=== PATIENT | female | born 1995 | race African-American/Black ===

== ENCOUNTER → 2023-07-03 | Emergency (ER) | payer OTHER ==
[~2023-07-03] VITALS: Ht 170.2 cm; Wt 43.2 kg
[~2023-07-03] MED LIST: ACETAMINOPHEN 325 MG TABLET PO PRN; INSLAN SQ; INSU100I3 SQ; IOHEXOL 350 MG/ML 100 ML VIAL ONE; MAGNESIUM HYDROXIDE SUSPENSION 30 ML UDCUP PO PRN; MORPHINE SULFATE 2 MG/ML SYRINGE IVP PRN; ONDANSETRON HCL 4 MG/2 ML VIAL IVP PRN; PANTOPRAZOLE SODIUM 40 MG/VIAL IVP SCH; POTASSIUM CHL 10 MEQ/WATER 50 ML IV PRN; POTASSIUM CHLORIDE 20 MEQ ER TABLET PO PRN; PREN1TAB22 PO; SODIUM CHLORIDE 0.9% 1,000 ML IV SCH; SODIUM CHLORIDE 0.9% 100 ML ONE
[2023-07-03 01:42] VITALS: TEMP 98
[2023-07-03 01:58] LABS: BASOPHILS % (AUTO) 0.9 % (0.0-2.0); EOSINOPHILS % (AUTO) 1.9 % (1.0-6.0); HEMATOCRIT 35.1 % (36-46); HEMOGLOBIN 11.6 g/dL (12.0-16.0); LYMPHOCYTES # (AUTO) 2.5 K/uL (1.0-4.8); LYMPHOCYTES % (AUTO) 30.3 % (22.0-44.0); MEAN CORPUSCULAR HGB CONC 33.1 G/dL (31.0-37.0); MEAN CORPUSCULAR VOLUME 88 fL (80-100); MONOCYTES # (AUTO) 0.6 K/uL (0.1-1.0); MONOCYTES % (AUTO) 7.3 % (2.0-9.0); NEUTROPHILS # (AUTO) 4.9 K/uL (1.8-7.7); NEUTROPHILS % (AUTO) 59.6 % (40.0-70.0); PLATELET COUNT (AUTO) 206 K/uL (150-450); RED BLOOD CELL COUNT(AUTO) 4.01 MIL/uL (4.00-5.20); RED CELL DISTRIBUTION WIDTH 14.5 % (11.5-14.5); WHITE BLOOD COUNT (AUTO) 8.2 K/uL (4.5-11.0)
[2023-07-03 02:14] LABS: ALANINE AMINOTRANSFERASE 77 U/L (12-78); ALBUMIN 3.3 g/dL (3.4-5.0); ALKALINE PHOSPHATASE 123 U/L (46-116); ANION GAP 8 mmol/L (8-16); ASPARTATE AMINOTRANSFERASE 75 U/L (15-37); BILIRUBIN,TOTAL 0.3 mg/dL (0.1-1.0); CALCIUM, TOTAL 8.4 mg/dL (8.8-10.5); CARBON DIOXIDE 25 mmol/L (22-29); CHLORIDE 105 mmol/L (98-107); CREATININE 0.93 mg/dL (0.60-1.30); GLOMERULAR FILTR. RATE CALC > 60 mL/min (>60); LIPASE 77 U/L (16-77); POTASSIUM 3.4 mmol/L (3.5-5.1); SODIUM SERUM 138 mmol/L (136-145); TOTAL PROTEIN, SERUM 6.7 g/dL (6.4-8.2); UREA NITROGEN, BLOOD 7 mg/dL (7-18)
[2023-07-03 02:16] LABS: ACETONE,BLOOD NEGATIVE (NEGATIVE); TROPONIN I-HIGH SENSITIVITY Less Than 4 ng/L (<51)
[2023-07-03 02:18] LABS: GLUCOSE,RANDOM 540 mg/dL (70-110)
[2023-07-03] MEDS: SODIUM CHLORIDE 0.9% 1,000 ML IV ONE ×2 (02:36→07:38)
[2023-07-03] MEDS: MORPHINE SULFATE 2 MG/ML SYRINGE IVP ONE ×2 (02:37→03:28)
[2023-07-03] MEDS: ONDANSETRON HCL 4 MG/2 ML VIAL IVP ONE (02:38)
[2023-07-03] MEDS: FAMOTIDINE 20 MG/2 ML VIAL IVP ONE (02:52)
[2023-07-03] MEDS: INSULIN REGULAR, HUMAN 100 UNITS/ML IVP ONE (03:00)
[2023-07-03] MEDS: POTASSIUM CHL 10 MEQ/WATER 50 ML IV SCH (03:21)
[2023-07-03 04:21] LABS: GLUCOMETER DEV NAME(LOC) ERT.5; GLUCOSE,POINT OF CARE 455 MG/DL (70-110)
[2023-07-03 04:21] LABS: GLUCOMETER DEV NAME(LOC) ERT.5; GLUCOSE,POINT OF CARE 156 MG/DL (70-110)
[2023-07-03 04:24] LABS: APPEARANCE,URINE CLEAR (CLEAR); BILIRUBIN,URINE NEGATIVE (NEGATIVE); COLOR,URINE COLORLESS (YELLOW); GLUCOSE, URINE (UA) >=1000 mg/dL (NEGATIVE); KETONES,URINE NEGATIVE (NEGATIVE); LEUKOCYTE ESTERASE ,URINE NEGATIVE (NEGATIVE); NITRATE,URINE NEGATIVE (NEGATIVE); OCCULT BLOOD,URINE NEGATIVE (NEGATIVE); PROTEIN,URINE NEGATIVE (NEGATIVE); UROBILINOGEN,URINE <=1.0 mg/dL (<=1.0)
[2023-07-03 04:34] LABS: BACTERIA,URINE None Seen /HPF (None Seen); RBC,URINE None Seen /HPF (0-2); WBC,URINE None Seen /HPF (0-5)
[2023-07-03 04:35] LABS: SQUAMOUS EPITHELIAL CELL,UR None Seen /LPF (None Seen)
[2023-07-03] MEDS: ACETAMINOPHEN 325 MG TABLET PO ONE (05:53)
[2023-07-03 06:30] LABS: GLUCOMETER DEV NAME(LOC) ERT.5; GLUCOSE,POINT OF CARE 88 MG/DL (70-110)
[2023-07-03 07:16] VITALS: BP 119/79; PULSE 88; RESP 20
[2023-07-03] MEDS: METHOCARBAMOL 500 MG TABLET PO ONE (08:10)
[2023-07-03 10:26] LABS: GLUCOMETER DEV NAME(LOC) ERT.5; GLUCOSE,POINT OF CARE 200 MG/DL (70-110)
[2023-07-03 12:10] LABS: ALCOHOL, URINE DRUG SCREEN NEGATIVE (NEGATIVE); AMPHET/METH SCREEN,URINE NEGATIVE (NEGATIVE); BARBITURATE SCREEN, URINE NEGATIVE (NEGATIVE); BENZODIAZEPINES SCREEN,URINE NEGATIVE (NEGATIVE); CANNABINOID SCREEN,URINE NEGATIVE (NEGATIVE); COCAINE SCREEN,URINE NEGATIVE (NEGATIVE); METHADONE SCREEN, URINE NEGATIVE (NEGATIVE); OPIATE SCREEN,URINE POSITIVE (NEGATIVE); PHENCYCLIDINE SCREEN,URINE NEGATIVE (NEGATIVE)
== END | disposition still patient (30) ==
LOC: EMS 01:24
DX: N39.0 Urinary tract infection, site not specified (principal); E11.65 Type 2 diabetes mellitus with hyperglycemia; R11.2 Nausea with vomiting, unspecified; Z88.8 Allergy status to other drugs, medicaments and biological substances
CPT/HCPCS: 99285; 74177; 96365; 96375; 96361; 80053; 81001; 82009; 83690; 84484; 84703; 85025; 36415; 93005; 96376; 80307; 82962; J3490; J2270; J2405; Q9967; J3480; J7030; J7050; J1815

== ENCOUNTER 2023-08-01 02:02 | Emergency (ER) | payer OTHER ==
[~2023-08-01] VITALS: Ht 170.2 cm; Wt 44.5 kg
[~2023-08-01 02:02] MED LIST changes: -ACETAMINOPHEN 325 MG TABLET PO PRN; -IOHEXOL 350 MG/ML 100 ML VIAL ONE; -MAGNESIUM HYDROXIDE SUSPENSION 30 ML UDCUP PO PRN; -MORPHINE SULFATE 2 MG/ML SYRINGE IVP PRN; -ONDANSETRON HCL 4 MG/2 ML VIAL IVP PRN; -PANTOPRAZOLE SODIUM 40 MG/VIAL IVP SCH; -POTASSIUM CHL 10 MEQ/WATER 50 ML IV PRN; -POTASSIUM CHLORIDE 20 MEQ ER TABLET PO PRN; -SODIUM CHLORIDE 0.9% 1,000 ML IV SCH; -SODIUM CHLORIDE 0.9% 100 ML ONE
[2023-08-01 02:09] VITALS: BP 105/70; RESP 18
[2023-08-01 02:59] LABS: BASOPHILS % (AUTO) 2.2 % (0.0-2.0); EOSINOPHILS % (AUTO) 2.9 % (1.0-6.0); HEMATOCRIT 34.8 % (36-46); HEMOGLOBIN 11.5 g/dL (12.0-16.0); LYMPHOCYTES # (AUTO) 2.2 K/uL (1.0-4.8); LYMPHOCYTES % (AUTO) 29.7 % (22.0-44.0); MEAN CORPUSCULAR HEMOGLOBIN 28.3 pg (26.0-34.0); MEAN CORPUSCULAR HGB CONC 33.1 G/dL (31.0-37.0); MEAN CORPUSCULAR VOLUME 85 fL (80-100); MONOCYTES # (AUTO) 0.5 K/uL (0.1-1.0); MONOCYTES % (AUTO) 6.9 % (2.0-9.0); NEUTROPHILS # (AUTO) 4.4 K/uL (1.8-7.7); NEUTROPHILS % (AUTO) 58.3 % (40.0-70.0); PLATELET COUNT (AUTO) 285 K/uL (150-450); RED BLOOD CELL COUNT(AUTO) 4.07 MIL/uL (4.00-5.20); RED CELL DISTRIBUTION WIDTH 14.1 % (11.5-14.5); WHITE BLOOD COUNT (AUTO) 7.5 K/uL (4.5-11.0)
[2023-08-01 03:08] LABS: ANION GAP 13 mmol/L (8-16); CALCIUM, TOTAL 8.2 mg/dL (8.8-10.5); CARBON DIOXIDE 19 mmol/L (22-29); CHLORIDE 104 mmol/L (98-107); CREATININE 1.01 mg/dL (0.60-1.30); GLOMERULAR FILTR. RATE CALC > 60 mL/min (>60); GLUCOSE,RANDOM 338 mg/dL (70-110); POTASSIUM 3.7 mmol/L (3.5-5.1); SODIUM SERUM 136 mmol/L (136-145); UREA NITROGEN, BLOOD 13 mg/dL (7-18)
[2023-08-01 03:22] LABS: ALANINE AMINOTRANSFERASE 109 U/L (12-78); ALBUMIN 3.3 g/dL (3.4-5.0); ALKALINE PHOSPHATASE 117 U/L (46-116); ASPARTATE AMINOTRANSFERASE 96 U/L (15-37); BILIRUBIN,TOTAL 0.2 mg/dL (0.1-1.0); LIPASE 69 U/L (16-77); TOTAL PROTEIN, SERUM 6.9 g/dL (6.4-8.2)
[2023-08-01 03:45] LABS: AMPHET/METH SCREEN,URINE NEGATIVE (NEGATIVE); BARBITURATE SCREEN, URINE NEGATIVE (NEGATIVE); BENZODIAZEPINES SCREEN,URINE NEGATIVE (NEGATIVE); CANNABINOID SCREEN,URINE NEGATIVE (NEGATIVE); COCAINE SCREEN,URINE NEGATIVE (NEGATIVE); METHADONE SCREEN, URINE NEGATIVE (NEGATIVE); OPIATE SCREEN,URINE NEGATIVE (NEGATIVE); PHENCYCLIDINE SCREEN,URINE NEGATIVE (NEGATIVE)
[2023-08-01 03:46] LABS: ALCOHOL, URINE DRUG SCREEN NEGATIVE (NEGATIVE)
[2023-08-01] MEDS: METOCLOPRAMIDE HCL 5 MG/ML 2 ML VIAL IVP ONE (04:41)
[2023-08-01] MEDS: SODIUM CHLORIDE 0.9% 1,000 ML IV ONE (04:41)
[2023-08-01] MEDS ORDERED: ONDANSETRON HCL 4 MG/2 ML VIAL ONE (04:51)
[2023-08-01] MEDS: ONDANSETRON HCL 4 MG/2 ML VIAL IVP ONE (04:52)
[2023-08-01] MEDS: MORPHINE SULFATE 2 MG/ML SYRINGE IVP ONE (05:56)
== END 2023-08-01 06:09 | disposition home or self-care (01) ==
LOC: EMS 02:03
DX: E11.9 Type 2 diabetes mellitus without complications (principal); Z98.890 Other specified postprocedural states; Z88.8 Allergy status to other drugs, medicaments and biological substances
CPT/HCPCS: 99285; 96374; 96375; 96361; 80053; 83690; 84703; 85025; 36415; 80307; G0480; J2270; J2405; J7030; J2765

== ENCOUNTER 2024-03-21 11:12 | Inpatient (IN) | payer OTHER ==
[~2024-03-21] VITALS: Ht 170.2 cm; Wt 40.0 kg
[2024-03-21 12:01] LABS: BASOPHILS % (AUTO) 1.3 % (0.0-2.0); EOSINOPHILS % (AUTO) 0.3 % (1.0-6.0); HEMATOCRIT 34.3 % (36-46); HEMOGLOBIN 11.1 g/dL (12.0-16.0); LYMPHOCYTES # (AUTO) 1.3 K/uL (1.0-4.8); LYMPHOCYTES % (AUTO) 19.2 % (22.0-44.0); MEAN CORPUSCULAR HEMOGLOBIN 25.8 pg (26.0-34.0); MEAN CORPUSCULAR HGB CONC 32.3 G/dL (31.0-37.0); MEAN CORPUSCULAR VOLUME 80 fL (80-100); MONOCYTES # (AUTO) 0.4 K/uL (0.1-1.0); MONOCYTES % (AUTO) 6.1 % (2.0-9.0); NEUTROPHILS # (AUTO) 4.8 K/uL (1.8-7.7); NEUTROPHILS % (AUTO) 73.1 % (40.0-70.0); PLATELET COUNT (AUTO) 361 K/uL (150-450); WHITE BLOOD COUNT (AUTO) 6.5 K/uL (4.5-11.0)
[2024-03-21 12:09] LABS: ANION GAP 15 mmol/L (8-16); CALCIUM, TOTAL 9.3 mg/dL (8.8-10.5); CARBON DIOXIDE 22 mmol/L (22-29); CHLORIDE 96 mmol/L (98-107); CREATININE 1.18 mg/dL (0.60-1.30); GLOMERULAR FILTR. RATE CALC > 60 mL/min (>60); GLUCOSE,RANDOM 261 mg/dL (70-110); LIPASE 94 U/L (16-77); POTASSIUM 3.9 mmol/L (3.5-5.1); SODIUM SERUM 133 mmol/L (136-145); UREA NITROGEN, BLOOD 28 mg/dL (7-18)
[2024-03-21] MEDS: SODIUM CHLORIDE 0.9% 1,900 ML IV ONE (13:03)
[2024-03-21] MEDS: MORPHINE SULFATE 2 MG/ML SYRINGE IVP ONE ×2 (13:46→15:17)
[2024-03-21] MEDS: ONDANSETRON HCL 4 MG/2 ML VIAL IVP ONE (13:46)
[2024-03-21 13:58] LABS: APPEARANCE,URINE CLEAR (CLEAR); BILIRUBIN,URINE NEGATIVE (NEGATIVE); COLOR,URINE LIGHT YELLOW (YELLOW); GLUCOSE, URINE (UA) >=1000 mg/dL (NEGATIVE); KETONES,URINE 80-100 mg/dL (NEGATIVE); LEUKOCYTE ESTERASE ,URINE NEGATIVE (NEGATIVE); NITRATE,URINE NEGATIVE (NEGATIVE); OCCULT BLOOD,URINE NEGATIVE (NEGATIVE); PH,URINE 6.5 (5.0-8.0); PROTEIN,URINE TRACE mg/dL (NEGATIVE); UROBILINOGEN,URINE <=1.0 mg/dL (<=1.0)
[2024-03-21 14:06] LABS: BACTERIA,URINE None Seen /HPF (None Seen); RBC,URINE None Seen /HPF (0-2); SQUAMOUS EPITHELIAL CELL,UR None Seen /LPF (None Seen); WBC,URINE 0-2 /HPF (0-5)
[2024-03-21] MEDS ORDERED: IOHEXOL 300 MG/ML 100 ML VIAL ONE (14:57)
[2024-03-21] MEDS ORDERED: 0.9% SODIUM CHLORIDE 10 ML SYRINGE IVP ONE (14:57)
[2024-03-21] MEDS ORDERED: ACETAMINOPHEN 325 MG TABLET PO PRN (15:30)
[2024-03-21] MEDS: PANTOPRAZOLE SODIUM 40 MG/VIAL IVP SCH (16:27)
[2024-03-21] MEDS: SODIUM CHLORIDE 0.9% 1,000 ML IV ONE (16:27)
[2024-03-21] MEDS: MORPHINE SULFATE 2 MG/ML SYRINGE IVP PRN (18:59)
[2024-03-21 21:37] VITALS: BP 103/80; PULSE 104; RESP 18; TEMP 98.1; O2SAT 98
[2024-03-21 22:29] LABS: LACTIC ACID 0.7 mmol/L (0.4-2.0)
[2024-03-22] MEDS: ONDANSETRON HCL 4 MG/2 ML VIAL IVP PRN (00:22)
[2024-03-22 00:36] LABS: GLUCOMETER DEV NAME(LOC) 6S.1D; GLUCOSE,POINT OF CARE 96 MG/DL (70-110)
[2024-03-22 04:43] VITALS: BP 129/84; PULSE 96; RESP 18; TEMP 98.7; O2SAT 98
[2024-03-22 05:08] LABS: INFLUENZA A-RTPCR,COMBO NEGATIVE (NEGATIVE); INFLUENZA B-RTPCR,COMBO NEGATIVE (NEGATIVE); RESPIRATORY SYNCYTIAL VRS-PCR NEGATIVE (NEGATIVE); SARS COVID19 RTPCR, COMBO NEGATIVE (NEGATIVE)
[2024-03-22 07:11] LABS: GLUCOMETER DEV NAME(LOC) 6S.1D; GLUCOSE,POINT OF CARE 153 MG/DL (70-110)
[2024-03-22 09:06] VITALS: BP 132/96; PULSE 101; RESP 18; O2SAT 98
[2024-03-22 11:46] LABS: GLUCOMETER DEV NAME(LOC) 6S.1D; GLUCOSE,POINT OF CARE 188 MG/DL (70-110)
[2024-03-22] MEDS: SODIUM CHLORIDE 0.9% 1,000 ML IV SCH (12:03)
[2024-03-22] MEDS: MORPHINE SULFATE 2 MG/ML SYRINGE IVP PRN (17:14)
[2024-03-22] MEDS: INSULIN LISPRO 100 UNITS/ML SQ PRN (20:50)
[2024-03-22 21:00] VITALS: BP 146/93; PULSE 97; RESP 18; TEMP 98.3; O2SAT 98
[2024-03-22 21:41] LABS: GLUCOMETER DEV NAME(LOC) 6S.2; GLUCOSE,POINT OF CARE 195 MG/DL (70-110)
[2024-03-22 21:41] LABS: GLUCOMETER DEV NAME(LOC) 6S.1D; GLUCOSE,POINT OF CARE 232 MG/DL (70-110)
[2024-03-23 05:53] VITALS: RESP 18
[2024-03-23 08:18] VITALS: BP 119/82; PULSE 95; RESP 18; TEMP 98.2; O2SAT 94
[2024-03-23] MEDS: PROMETHAZINE HCL 12.5 MG RECTAL SUPPOSITORY PR PRN (15:21)
[2024-03-23 15:42] VITALS: BP 117/82; PULSE 101; RESP 18; TEMP 98.1; O2SAT 98
[2024-03-23 17:11] LABS: GLUCOMETER DEV NAME(LOC) 6S.2; GLUCOSE,POINT OF CARE 246 MG/DL (70-110)
[2024-03-23 17:11] LABS: GLUCOMETER DEV NAME(LOC) 6S.2; GLUCOSE,POINT OF CARE 249 MG/DL (70-110)
[2024-03-23 20:00] VITALS: BP 113/76; PULSE 92; RESP 18; TEMP 98.7; O2SAT 98
[2024-03-23] MEDS: MORPHINE SULFATE 2 MG/ML SYRINGE IVP PRN (22:15)
[2024-03-23 22:41] LABS: GLUCOMETER DEV NAME(LOC) 6S.2; GLUCOSE,POINT OF CARE 200 MG/DL (70-110)
[2024-03-24 04:14] VITALS: BP 120/85; PULSE 97; RESP 18; TEMP 98.3; O2SAT 98
[2024-03-24 09:53] VITALS: BP 120/86; PULSE 90; RESP 18; TEMP 97.8; O2SAT 98
[2024-03-24 15:23] LABS: BASOPHILS % (AUTO) 0.8 % (0.0-2.0); EOSINOPHILS % (AUTO) 0.4 % (1.0-6.0); HEMATOCRIT 35.2 % (36-46); HEMOGLOBIN 10.8 g/dL (12.0-16.0); LYMPHOCYTES # (AUTO) 1.8 K/uL (1.0-4.8); LYMPHOCYTES % (AUTO) 24.2 % (22.0-44.0); MEAN CORPUSCULAR HEMOGLOBIN 24.7 pg (26.0-34.0); MEAN CORPUSCULAR HGB CONC 30.6 G/dL (31.0-37.0); MEAN CORPUSCULAR VOLUME 81 fL (80-100); MONOCYTES # (AUTO) 0.4 K/uL (0.1-1.0); MONOCYTES % (AUTO) 5.3 % (2.0-9.0); NEUTROPHILS # (AUTO) 5.1 K/uL (1.8-7.7); NEUTROPHILS % (AUTO) 69.3 % (40.0-70.0); PLATELET COUNT (AUTO) 289 K/uL (150-450); RED BLOOD CELL COUNT(AUTO) 4.36 MIL/uL (4.00-5.20); RED CELL DISTRIBUTION WIDTH 15.1 % (11.5-14.5); WHITE BLOOD COUNT (AUTO) 7.4 K/uL (4.5-11.0)
[2024-03-24 15:37] LABS: ANION GAP 22 mmol/L (8-16); CALCIUM, TOTAL 8.3 mg/dL (8.8-10.5); CARBON DIOXIDE 12 mmol/L (22-29); CHLORIDE 97 mmol/L (98-107); CREATININE 1.02 mg/dL (0.60-1.30); GLOMERULAR FILTR. RATE CALC > 60 mL/min (>60); GLUCOSE,RANDOM 267 mg/dL (70-110); POTASSIUM 3.6 mmol/L (3.5-5.1); SODIUM SERUM 131 mmol/L (136-145); UREA NITROGEN, BLOOD 15 mg/dL (7-18)
[2024-03-24 15:42] LABS: ALANINE AMINOTRANSFERASE 17 U/L (12-78); ALBUMIN 3.2 g/dL (3.4-5.0); ALKALINE PHOSPHATASE 136 U/L (46-116); ASPARTATE AMINOTRANSFERASE 16 U/L (15-37); BILIRUBIN,TOTAL 0.5 mg/dL (0.1-1.0); TOTAL PROTEIN, SERUM 6.5 g/dL (6.4-8.2)
[2024-03-24 17:39] VITALS: BP 91/59; RESP 18; TEMP 98.4; O2SAT 98
[2024-03-24] MEDS: ERYTHROMYCIN LACTOBIONATE 250 MG in SODIUM CHLORIDE 0.9% 100 ML IV SCH (18:40)
[2024-03-24 19:55] VITALS: BP 106/73; PULSE 96; RESP 18; TEMP 98.4; O2SAT 100
[2024-03-24 20:10] LABS: GLUCOMETER DEV NAME(LOC) 6N.2B; GLUCOSE,POINT OF CARE 303 MG/DL (70-110)
[2024-03-24 20:16] LABS: GLUCOMETER DEV NAME(LOC) 6S.2; GLUCOSE,POINT OF CARE 293 MG/DL (70-110)
[2024-03-24 20:16] LABS: GLUCOMETER DEV NAME(LOC) 6S.2; GLUCOSE,POINT OF CARE 237 MG/DL (70-110)
[2024-03-24] MEDS: PROMETHAZINE HCL 25 MG TABLET PO ONE (21:44)
[2024-03-25 05:15] VITALS: BP 100/54; PULSE 95; RESP 18; TEMP 97.7; O2SAT 96
[2024-03-25 07:09] LABS: BASOPHILS % (AUTO) 1.3 % (0.0-2.0); EOSINOPHILS % (AUTO) 0.5 % (1.0-6.0); HEMATOCRIT 33.6 % (36-46); HEMOGLOBIN 10.5 g/dL (12.0-16.0); LYMPHOCYTES # (AUTO) 1.4 K/uL (1.0-4.8); MEAN CORPUSCULAR HEMOGLOBIN 25.9 pg (26.0-34.0); MEAN CORPUSCULAR HGB CONC 31.3 G/dL (31.0-37.0); MEAN CORPUSCULAR VOLUME 83 fL (80-100); MONOCYTES # (AUTO) 0.4 K/uL (0.1-1.0); MONOCYTES % (AUTO) 4.8 % (2.0-9.0); NEUTROPHILS # (AUTO) 7.1 K/uL (1.8-7.7); NEUTROPHILS % (AUTO) 78.4 % (40.0-70.0); PLATELET COUNT (AUTO) 271 K/uL (150-450); RED BLOOD CELL COUNT(AUTO) 4.07 MIL/uL (4.00-5.20); RED CELL DISTRIBUTION WIDTH 15.3 % (11.5-14.5); WHITE BLOOD COUNT (AUTO) 9.1 K/uL (4.5-11.0)
[2024-03-25 07:23] LABS: ALANINE AMINOTRANSFERASE 17 U/L (12-78); ALBUMIN 3.3 g/dL (3.4-5.0); ALKALINE PHOSPHATASE 142 U/L (46-116); ANION GAP 28 mmol/L (8-16); ASPARTATE AMINOTRANSFERASE 16 U/L (15-37); BILIRUBIN,TOTAL 0.5 mg/dL (0.1-1.0); CALCIUM, TOTAL 8.2 mg/dL (8.8-10.5); CHLORIDE 97 mmol/L (98-107); CREATININE 1.24 mg/dL (0.60-1.30); GLOMERULAR FILTR. RATE CALC > 60 mL/min (>60); GLUCOSE,RANDOM 340 mg/dL (70-110); POTASSIUM 3.9 mmol/L (3.5-5.1); SODIUM SERUM 132 mmol/L (136-145); TOTAL PROTEIN, SERUM 6.6 g/dL (6.4-8.2); UREA NITROGEN, BLOOD 18 mg/dL (7-18)
[2024-03-25 07:26] LABS: CARBON DIOXIDE 7 mmol/L (22-29)
[2024-03-25 08:08] VITALS: BP 80/52; PULSE 97; RESP 17; TEMP 97.7; O2SAT 98
[2024-03-25 11:31] LABS: GLUCOMETER DEV NAME(LOC) 6S.1D; GLUCOSE,POINT OF CARE 220 MG/DL (70-110)
[2024-03-25 13:45] VITALS: BP 90/48
[2024-03-25] MEDS: *CLINICAL-PERIPHERAL PARENTERAL NUTRITION DOSING CLINICAL ONE (13:47)
[2024-03-25] MEDS ORDERED: SODIUM CHLORIDE 0.45% 1,000 ML IV PRN (14:00)
[2024-03-25] MEDS ORDERED: POTASSIUM CHL 20 MEQ/0.45% NS 1,000 ML IV PRN (14:00)
[2024-03-25 14:17] VITALS: BP 94/50; PULSE 92; RESP 18; TEMP 97.6; O2SAT 99
[2024-03-25] MEDS: SODIUM CHLORIDE 0.9% 1,000 ML IV SCH (14:25)
[2024-03-25 15:03] LABS: BASOPHILS % (AUTO) 1.1 % (0.0-2.0); EOSINOPHILS % (AUTO) 0.4 % (1.0-6.0); HEMATOCRIT 33.8 % (36-46); HEMOGLOBIN 10.6 g/dL (12.0-16.0); LYMPHOCYTES # (AUTO) 1.5 K/uL (1.0-4.8); LYMPHOCYTES % (AUTO) 18.6 % (22.0-44.0); MEAN CORPUSCULAR HEMOGLOBIN 25.5 pg (26.0-34.0); MEAN CORPUSCULAR HGB CONC 31.3 G/dL (31.0-37.0); MEAN CORPUSCULAR VOLUME 81 fL (80-100); MONOCYTES # (AUTO) 0.7 K/uL (0.1-1.0); MONOCYTES % (AUTO) 8.1 % (2.0-9.0); NEUTROPHILS # (AUTO) 5.7 K/uL (1.8-7.7); NEUTROPHILS % (AUTO) 71.8 % (40.0-70.0); PLATELET COUNT (AUTO) 271 K/uL (150-450); RED BLOOD CELL COUNT(AUTO) 4.15 MIL/uL (4.00-5.20); RED CELL DISTRIBUTION WIDTH 15.4 % (11.5-14.5)
[2024-03-25] MEDS: INSULIN REGULAR, HUMAN 100 UNITS in SODIUM CHLORIDE 0.9% 99 ML IV PRN (15:14)
[2024-03-25 15:22] LABS: ALANINE AMINOTRANSFERASE 17 U/L (12-78); ALKALINE PHOSPHATASE 131 U/L (46-116); ASPARTATE AMINOTRANSFERASE 23 U/L (15-37); BILIRUBIN,TOTAL 0.5 mg/dL (0.1-1.0); CALCIUM, TOTAL 7.8 mg/dL (8.8-10.5); CHLORIDE 100 mmol/L (98-107); CREATININE 1.23 mg/dL (0.60-1.30); GLOMERULAR FILTR. RATE CALC > 60 mL/min (>60); GLUCOSE,RANDOM 276 mg/dL (70-110); POTASSIUM 3.8 mmol/L (3.5-5.1); SODIUM SERUM 131 mmol/L (136-145); TOTAL PROTEIN, SERUM 6.1 g/dL (6.4-8.2); UREA NITROGEN, BLOOD 17 mg/dL (7-18)
[2024-03-25 15:30] LABS: ANION GAP 22 mmol/L (8-16); CARBON DIOXIDE 9 mmol/L (22-29)
[2024-03-25] MEDS: INSULIN REGULAR, HUMAN 100 UNITS/ML IVP ONE (16:04)
[2024-03-25] MEDS: INSULIN REGULAR, HUMAN 100 UNITS/ML IVP PRN (17:00)
[2024-03-25 17:50] LABS: GLUCOMETER DEV NAME(LOC) 6N.2B; GLUCOSE,POINT OF CARE 356 MG/DL (70-110)
[2024-03-25 17:50] LABS: GLUCOMETER DEV NAME(LOC) 6N.2B; GLUCOSE,POINT OF CARE 261 MG/DL (70-110)
[2024-03-25 18:00] VITALS: BP 96/61; PULSE 96; RESP 16; TEMP 98.1; O2SAT 100
[2024-03-25] MEDS: POTASSIUM CHLORIDE 40 MEQ in SODIUM CHLORIDE 0.45% 1,000 ML IV PRN (19:28)
[2024-03-25] MEDS: DEXTROSE 5%-0.45% SODIUM CHL 1,000 ML IV PRN (19:32)
[2024-03-25 19:56] LABS: ANION GAP 24 mmol/L (8-16); CALCIUM, TOTAL 7.6 mg/dL (8.8-10.5); CHLORIDE 104 mmol/L (98-107); CREATININE 1.22 mg/dL (0.60-1.30); GLOMERULAR FILTR. RATE CALC > 60 mL/min (>60); GLUCOSE,RANDOM 230 mg/dL (70-110); POTASSIUM 3.4 mmol/L (3.5-5.1); SODIUM SERUM 137 mmol/L (136-145); UREA NITROGEN, BLOOD 17 mg/dL (7-18)
[2024-03-25 20:00] VITALS: BP 100/67; PULSE 89; RESP 15; TEMP 97.6
[2024-03-25 20:06] LABS: CARBON DIOXIDE 9 mmol/L (22-29)
[2024-03-25 21:16] LABS: GLUCOMETER DEV NAME(LOC) ICU.S6; GLUCOSE,POINT OF CARE 224 MG/DL (70-110)
[2024-03-25 21:16] LABS: GLUCOMETER DEV NAME(LOC) ICU.S6; GLUCOSE,POINT OF CARE 198 MG/DL (70-110)
[2024-03-25 21:16] LABS: GLUCOMETER DEV NAME(LOC) ICU.S6; GLUCOSE,POINT OF CARE 265 MG/DL (70-110)
[2024-03-25 21:16] LABS: GLUCOMETER DEV NAME(LOC) ICU.S6; GLUCOSE,POINT OF CARE 259 MG/DL (70-110)
[2024-03-25 21:16] LABS: GLUCOMETER DEV NAME(LOC) ICU.S6; GLUCOSE,POINT OF CARE 283 MG/DL (70-110)
[2024-03-25 21:16] LABS: GLUCOMETER DEV NAME(LOC) ICU.S6; GLUCOSE,POINT OF CARE 283 MG/DL (70-110)
[2024-03-25 21:16] LABS: GLUCOMETER DEV NAME(LOC) ICU.S6; GLUCOSE,POINT OF CARE 239 MG/DL (70-110)
[2024-03-25] MEDS ORDERED: [UNRECOGNIZED DRUG - REMARK] IV SCH (22:00)
[2024-03-25] MEDS: ETHYL ALCOHOL 62% ANTISEPTIC NASAL SANITIZER 0.6 ML AMPUL NASAL SCH (22:00)
[2024-03-25 23:44] LABS: ANION GAP 14 mmol/L (8-16); CALCIUM, TOTAL 7.6 mg/dL (8.8-10.5); CARBON DIOXIDE 16 mmol/L (22-29); CHLORIDE 106 mmol/L (98-107); CREATININE 1.27 mg/dL (0.60-1.30); GLOMERULAR FILTR. RATE CALC > 60 mL/min (>60); GLUCOSE,RANDOM 138 mg/dL (70-110); POTASSIUM 3.4 mmol/L (3.5-5.1); SODIUM SERUM 136 mmol/L (136-145); UREA NITROGEN, BLOOD 15 mg/dL (7-18)
[2024-03-26] VITALS (8 sets, daily range): BP systolic 87–109; BP diastolic 56–86; PULSE 76–91; RESP 13–17; TEMP 97.6–98; O2SAT 0–100
[2024-03-26 00:10] LABS: GLUCOMETER DEV NAME(LOC) ICU.S6; GLUCOSE,POINT OF CARE 140 MG/DL (70-110)
[2024-03-26] MEDS: DEXTROSE 50%-WATER 25 GM/50 ML SYRINGE IVP PRN ×3 (01:43→15:11)
[2024-03-26 02:21] LABS: GLUCOMETER DEV NAME(LOC) ICUN.5; GLUCOSE,POINT OF CARE 152 MG/DL (70-110)
[2024-03-26 02:21] LABS: GLUCOMETER DEV NAME(LOC) ICUN.5; GLUCOSE,POINT OF CARE 171 MG/DL (70-110)
[2024-03-26 02:21] LABS: GLUCOMETER DEV NAME(LOC) ICUN.5; GLUCOSE,POINT OF CARE 61 MG/DL (70-110)
[2024-03-26 03:35] LABS: BASOPHILS % (AUTO) 0.8 % (0.0-2.0); EOSINOPHILS % (AUTO) 1.9 % (1.0-6.0); HEMATOCRIT 30.3 % (36-46); HEMOGLOBIN 9.9 g/dL (12.0-16.0); LYMPHOCYTES # (AUTO) 1.2 K/uL (1.0-4.8); LYMPHOCYTES % (AUTO) 16.8 % (22.0-44.0); MEAN CORPUSCULAR HEMOGLOBIN 25.8 pg (26.0-34.0); MEAN CORPUSCULAR HGB CONC 32.7 G/dL (31.0-37.0); MEAN CORPUSCULAR VOLUME 79 fL (80-100); MONOCYTES # (AUTO) 0.6 K/uL (0.1-1.0); MONOCYTES % (AUTO) 8.6 % (2.0-9.0); NEUTROPHILS # (AUTO) 5.1 K/uL (1.8-7.7); NEUTROPHILS % (AUTO) 71.9 % (40.0-70.0); PLATELET COUNT (AUTO) 267 K/uL (150-450); RED BLOOD CELL COUNT(AUTO) 3.84 MIL/uL (4.00-5.20); RED CELL DISTRIBUTION WIDTH 15.2 % (11.5-14.5); WHITE BLOOD COUNT (AUTO) 7.1 K/uL (4.5-11.0)
[2024-03-26 03:50] LABS: ALANINE AMINOTRANSFERASE 17 U/L (12-78); ALBUMIN 2.8 g/dL (3.4-5.0); ALKALINE PHOSPHATASE 123 U/L (46-116); ANION GAP 11 mmol/L (8-16); ASPARTATE AMINOTRANSFERASE 25 U/L (15-37); BILIRUBIN,TOTAL 0.5 mg/dL (0.1-1.0); CALCIUM, TOTAL 7.4 mg/dL (8.8-10.5); CARBON DIOXIDE 19 mmol/L (22-29); CHLORIDE 106 mmol/L (98-107); CREATININE 1.18 mg/dL (0.60-1.30); GLOMERULAR FILTR. RATE CALC > 60 mL/min (>60); GLUCOSE,RANDOM 114 mg/dL (70-110); POTASSIUM 3.2 mmol/L (3.5-5.1); SODIUM SERUM 136 mmol/L (136-145); TOTAL PROTEIN, SERUM 5.8 g/dL (6.4-8.2); UREA NITROGEN, BLOOD 14 mg/dL (7-18)
[2024-03-26 04:03] LABS: PHOSPHORUS 1.2 mg/dL (2.5-4.9)
[2024-03-26] MEDS: PROMETHAZINE HCL 25 MG RECTAL SUPPOSITORY PR PRN (04:08)
[2024-03-26] MEDS: METOCLOPRAMIDE HCL 5 MG/ML 2 ML VIAL IVP ONE (04:56)
[2024-03-26] MEDS ORDERED: DEXTROSE 50%-WATER 25 GM/50 ML SYRINGE IVP ONE (05:28)
[2024-03-26] MEDS: INSULIN GLARGINE,HUM.REC.ANLOG 100 UNITS/ML SQ ONE (05:39)
[2024-03-26 05:41] LABS: GLUCOMETER DEV NAME(LOC) ICU.S6; GLUCOSE,POINT OF CARE 106 MG/DL (70-110)
[2024-03-26 05:41] LABS: GLUCOMETER DEV NAME(LOC) ICU.S6; GLUCOSE,POINT OF CARE 76 MG/DL (70-110)
[2024-03-26 05:41] LABS: GLUCOMETER DEV NAME(LOC) ICU.S6; GLUCOSE,POINT OF CARE 200 MG/DL (70-110)
[2024-03-26 05:41] LABS: GLUCOMETER DEV NAME(LOC) ICU.S6; GLUCOSE,POINT OF CARE 166 MG/DL (70-110)
[2024-03-26] MEDS: WATER IV ONE (07:02)
[2024-03-26] MEDS: POTASSIUM PHOS M BASIC D BASIC IV ONE (07:02)
[2024-03-26] MEDS: DEXTROSE 5% IV ONE (07:02)
[2024-03-26 07:06] LABS: GLUCOMETER DEV NAME(LOC) ICU.S6; GLUCOSE,POINT OF CARE 143 MG/DL (70-110)
[2024-03-26 08:21] LABS: GLUCOMETER DEV NAME(LOC) ICUN.5; GLUCOSE,POINT OF CARE 29 MG/DL (70-110)
[2024-03-26] MEDS ORDERED: INSULIN GLARGINE,HUM.REC.ANLOG 100 UNITS/ML SQ ONE (09:00)
[2024-03-26 09:59] LABS: ANION GAP 9 mmol/L (8-16); CALCIUM, TOTAL 7.6 mg/dL (8.8-10.5); CARBON DIOXIDE 21 mmol/L (22-29); CHLORIDE 106 mmol/L (98-107); CREATININE 1.06 mg/dL (0.60-1.30); GLOMERULAR FILTR. RATE CALC > 60 mL/min (>60); GLUCOSE,RANDOM 86 mg/dL (70-110); POTASSIUM 3.3 mmol/L (3.5-5.1); SODIUM SERUM 136 mmol/L (136-145); UREA NITROGEN, BLOOD 13 mg/dL (7-18)
[2024-03-26] MEDS: MAGNESIUM SULFATE 4 GM/WATER 100 ML IV ONE (10:47)
[2024-03-26 16:12] LABS: ANION GAP 11 mmol/L (8-16); CALCIUM, TOTAL 7.8 mg/dL (8.8-10.5); CARBON DIOXIDE 20 mmol/L (22-29); CHLORIDE 102 mmol/L (98-107); CREATININE 1.05 mg/dL (0.60-1.30); GLOMERULAR FILTR. RATE CALC > 60 mL/min (>60); GLUCOSE,RANDOM 183 mg/dL (70-110); POTASSIUM 3.6 mmol/L (3.5-5.1); SODIUM SERUM 133 mmol/L (136-145); UREA NITROGEN, BLOOD 11 mg/dL (7-18)
[2024-03-26 17:56] LABS: GLUCOMETER DEV NAME(LOC) ICU.S6; GLUCOSE,POINT OF CARE 91 MG/DL (70-110)
[2024-03-26 17:56] LABS: GLUCOMETER DEV NAME(LOC) ICU.S6; GLUCOSE,POINT OF CARE 69 MG/DL (70-110)
[2024-03-26 17:56] LABS: GLUCOMETER DEV NAME(LOC) ICU.S6; GLUCOSE,POINT OF CARE 68 MG/DL (70-110)
[2024-03-26 17:56] LABS: GLUCOMETER DEV NAME(LOC) ICU.S6; GLUCOSE,POINT OF CARE 81 MG/DL (70-110)
[2024-03-26 17:56] LABS: GLUCOMETER DEV NAME(LOC) ICU.S6; GLUCOSE,POINT OF CARE 115 MG/DL (70-110)
[2024-03-26 19:21] LABS: GLUCOMETER DEV NAME(LOC) ICUN.5; GLUCOSE,POINT OF CARE 140 MG/DL (70-110)
[2024-03-26 19:21] LABS: GLUCOMETER DEV NAME(LOC) ICUN.5; GLUCOSE,POINT OF CARE 108 MG/DL (70-110)
[2024-03-26] MEDS: PPN SOLUTION 1 EA, SODIUM CHLORIDE 70 MEQ, SODIUM PHOS,M-BASIC-D-BASIC 30 MEQ, POTASSIU... IV SCH (21:32)
[2024-03-26 22:26] LABS: GLUCOMETER DEV NAME(LOC) ICU.S6; GLUCOSE,POINT OF CARE 96 MG/DL (70-110)
[2024-03-27] VITALS: BP 111/72; PULSE 84; RESP 16; TEMP 98.2; O2SAT 99
[2024-03-27 00:16] LABS: GLUCOMETER DEV NAME(LOC) ICU.S6; GLUCOSE,POINT OF CARE 102 MG/DL (70-110)
[2024-03-27 00:16] LABS: GLUCOMETER DEV NAME(LOC) ICU.S6; GLUCOSE,POINT OF CARE 157 MG/DL (70-110)
[2024-03-27 04:00] VITALS: BP 119/84; PULSE 76; RESP 16; TEMP 98.5; O2SAT 100
[2024-03-27 04:30] LABS: GLUCOMETER DEV NAME(LOC) ICUN.5; GLUCOSE,POINT OF CARE 256 MG/DL (70-110)
[2024-03-27 04:30] LABS: GLUCOMETER DEV NAME(LOC) ICUN.5; GLUCOSE,POINT OF CARE 254 MG/DL (70-110)
[2024-03-27 06:06] LABS: GLUCOMETER DEV NAME(LOC) ICU.S6; GLUCOSE,POINT OF CARE 198 MG/DL (70-110)
[2024-03-27 06:24] LABS: BASOPHILS % (AUTO) 1.4 % (0.0-2.0); EOSINOPHILS % (AUTO) 2.1 % (1.0-6.0); HEMATOCRIT 33.1 % (36-46); HEMOGLOBIN 10.9 g/dL (12.0-16.0); LYMPHOCYTES # (AUTO) 1.5 K/uL (1.0-4.8); LYMPHOCYTES % (AUTO) 26.9 % (22.0-44.0); MEAN CORPUSCULAR HEMOGLOBIN 25.8 pg (26.0-34.0); MEAN CORPUSCULAR HGB CONC 32.8 G/dL (31.0-37.0); MEAN CORPUSCULAR VOLUME 79 fL (80-100); MONOCYTES # (AUTO) 0.4 K/uL (0.1-1.0); NEUTROPHILS # (AUTO) 3.6 K/uL (1.8-7.7); NEUTROPHILS % (AUTO) 62.6 % (40.0-70.0); PLATELET COUNT (AUTO) 204 K/uL (150-450); RED BLOOD CELL COUNT(AUTO) 4.21 MIL/uL (4.00-5.20); RED CELL DISTRIBUTION WIDTH 15.6 % (11.5-14.5); WHITE BLOOD COUNT (AUTO) 5.7 K/uL (4.5-11.0)
[2024-03-27 06:38] LABS: ALANINE AMINOTRANSFERASE 18 U/L (12-78); ALBUMIN 2.9 g/dL (3.4-5.0); ALKALINE PHOSPHATASE 130 U/L (46-116); ANION GAP 9 mmol/L (8-16); ASPARTATE AMINOTRANSFERASE 19 U/L (15-37); BILIRUBIN,TOTAL 0.4 mg/dL (0.1-1.0); CALCIUM, TOTAL 7.8 mg/dL (8.8-10.5); CARBON DIOXIDE 24 mmol/L (22-29); CHLORIDE 103 mmol/L (98-107); GLOMERULAR FILTR. RATE CALC > 60 mL/min (>60); GLUCOSE,RANDOM 247 mg/dL (70-110); PHOSPHORUS 2.1 mg/dL (2.5-4.9); SODIUM SERUM 136 mmol/L (136-145); UREA NITROGEN, BLOOD 8 mg/dL (7-18)
[2024-03-27] MEDS ORDERED: POTASSIUM PHOS,M-BASIC-D-BASIC 20 MEQ in DEXTROSE 5%-WATER 100 ML IV ONE (08:15)
[2024-03-27] MEDS ORDERED: POTASSIUM PHOS,M-BASIC-D-BASIC 20 MMOL in DEXTROSE 5%-WATER 150 ML IV ONE (08:30)
[2024-03-27] MEDS: INSULIN GLARGINE,HUM.REC.ANLOG 100 UNITS/ML SQ SCH (09:07)
[2024-03-27 14:11] LABS: GLUCOMETER DEV NAME(LOC) ICUN.5; GLUCOSE,POINT OF CARE 174 MG/DL (70-110)
[2024-03-27] MEDS ORDERED: SODIUM CHLORIDE IV SCH (22:00)
[2024-03-27] MEDS ORDERED: PPN IV SCH (22:00)
[2024-03-27] MEDS ORDERED: SODIUM PHOS M BASIC D BASIC IV SCH (22:00)
[2024-03-27] MEDS ORDERED: [UNRECOGNIZED DRUG - OTHER] IV SCH (22:00)
== END 2024-03-27 11:35 | disposition left against medical advice (07) | DRG 48 ==
LOC: EMS 11:12 → EDH 15:31 → 6N 21:25 → 6S 21:46 → ICU 03-25 14:49
PROVIDERS: ADMIT Internal Medicine; ATTEND Internal Medicine
DX: E10.43 Type 1 diabetes mellitus with diabetic autonomic (poly)neuropathy (principal); E43 Unspecified severe protein-calorie malnutrition; E83.39 Other disorders of phosphorus metabolism; E87.1 Hypo-osmolality and hyponatremia; E10.10 Type 1 diabetes mellitus with ketoacidosis without coma; K31.84 Gastroparesis; K52.89 Other specified noninfective gastroenteritis and colitis; E87.6 Hypokalemia; Z53.29 Procedure and treatment not carried out because of patient's decision for other reasons; E86.0 Dehydration; D64.9 Anemia, unspecified; F41.9 Anxiety disorder, unspecified; Z79.4 Long term (current) use of insulin; Z91.199 Patient's noncompliance with other medical treatment and regimen due to unspecified reason; Z83.3 Family history of diabetes mellitus
CPT/HCPCS: 0241U; 71045; 74177; 80048; 80053; 81001; 82009; 82962; 83605; 83690; 83735; 84100; 84703; 85025; 87040; 99285; J0610; J1364; J1815; J2270; J2405; J2470; J2765; J3411; J3475; J3480; J3490; J7030; J7050; J7060; J7070; J7131; Q9967; 36415-L1; 36415-TC; X7700

== ENCOUNTER 2024-12-08 16:43 | Inpatient (IN) | payer OTHER ==
[~2024-12-08] VITALS: Ht 170.2 cm; Wt 50.9 kg
[~2024-12-08 16:43] MED LIST changes: +DEXAMETHASONE SOD PHOS 4 MG/ML VIAL ONE; +FentaNYL CITRATE PF 100 MCG/2 ML VIAL IM ONE; +LIDOCAINE/PF 2% 5 ML SYRINGE IVP ONE; +MIDAZOLAM HCL 2 MG/2 ML VIAL IVP ONE; +ONDANSETRON HCL 4 MG/2 ML VIAL ONE; +PROPOFOL 1% 20 ML VIAL IVP ONE; +ROCURONIUM BROMIDE 10 MG/ML 5 ML VIAL ONE; +SUGAMMADEX SODIUM 200 MG/2 ML VIAL IVP ONE
[2024-12-08 17:23] LABS: PLATELET COUNT (AUTO) 203 K/uL (150-450); RED BLOOD CELL COUNT(AUTO) 3.78 MIL/uL (4.00-5.20); RED CELL DISTRIBUTION WIDTH 14.3 % (11.5-14.5); WHITE BLOOD COUNT (AUTO) 8.3 K/uL (4.5-11.0)
[2024-12-08 17:41] LABS: CALCIUM, TOTAL 9.2 mg/dL (8.8-10.5); CREATININE 1.05 mg/dL (0.60-1.30); GLOMERULAR FILTR. RATE CALC > 60 mL/min (>60); GLUCOSE,RANDOM 391 mg/dL (70-110); SODIUM SERUM 132 mmol/L (136-145); UREA NITROGEN, BLOOD 21 mg/dL (7-18)
[2024-12-08] MEDS: ONDANSETRON HCL 4 MG/2 ML VIAL IVP ONE ×2 (18:15→19:58)
[2024-12-08] MEDS: SODIUM CHLORIDE 0.9% 1,000 ML IV ONE ×2 (18:16→22:59)
[2024-12-08 18:40] LABS: HCG,QUANTITATIVE 1 mIU/mL (0-6)
[2024-12-08] MEDS ORDERED: 0.9% SODIUM CHLORIDE 10 ML SYRINGE IVP PRN (19:45)
[2024-12-08] MEDS: SODIUM CHLORIDE 0.9% 1,450 ML IV ONE (19:57)
[2024-12-08 20:40] LABS: LACTIC ACID < 0.3 mmol/L (0.4-2.0)
[2024-12-08] MEDS: CefTRIAXone 1 GM/DEXTROSE 50 ML IV ONE (20:53)
[2024-12-08 21:24] LABS: APPEARANCE,URINE CLEAR (CLEAR); GLUCOSE, URINE (UA) >=1000 mg/dL (NEGATIVE); LEUKOCYTE ESTERASE ,URINE NEGATIVE (NEGATIVE); NITRATE,URINE NEGATIVE (NEGATIVE); OCCULT BLOOD,URINE NEGATIVE (NEGATIVE); SPECIFIC GRAVITIY, URINE 1.029 (1.003-1.030)
[2024-12-08 21:38] LABS: SQUAMOUS EPITHELIAL CELL,UR Few /LPF (None Seen)
[2024-12-08] MEDS ORDERED: ACETAMINOPHEN 325 MG TABLET PO PRN (22:00)
[2024-12-08] MEDS ORDERED: BISACODYL 10 MG RECTAL RECTAL SUPPOSITORY PR PRN (22:00)
[2024-12-08] MEDS ORDERED: MAGNESIUM HYDROXIDE SUSPENSION 30 ML UDCUP PO PRN (22:00)
[2024-12-08] MEDS: INSULIN REGULAR, HUMAN 100 UNITS/ML IVP ONE (22:48)
[2024-12-08] MEDS: INSULIN LISPRO 100 UNITS/ML SQ PRN (22:58)
[2024-12-08] MEDS: LORazepam 2 MG/ML VIAL IVP ONE (23:00)
[2024-12-08 23:01] LABS: GLUCOMETER DEV NAME(LOC) ERT.7; GLUCOSE,POINT OF CARE 283 MG/DL (70-110)
[2024-12-08] MEDS: HEPARIN SODIUM,PORCINE 5,000 UNITS/ML VIAL SQ SCH (23:08)
[2024-12-08 23:40] VITALS: BP 129/100; PULSE 96; RESP 18; TEMP 98.2; O2SAT 96
[2024-12-09 01:02] LABS: PH,URINE DRUG SCREEN 6.5 (5.0-8.0)
[2024-12-09 01:09] LABS: ALCOHOL, URINE DRUG SCREEN NEGATIVE (NEGATIVE); AMPHET/METH SCREEN,URINE NEGATIVE (NEGATIVE); BARBITURATE SCREEN, URINE NEGATIVE (NEGATIVE); CANNABINOID SCREEN,URINE NEGATIVE (NEGATIVE); COCAINE SCREEN,URINE NEGATIVE (NEGATIVE); METHADONE SCREEN, URINE NEGATIVE (NEGATIVE)
[2024-12-09 03:53] VITALS: BP 105/82; PULSE 95; RESP 18; TEMP 97.5; O2SAT 98
[2024-12-09] MEDS: MORPHINE SULFATE 4 MG/ML SYRINGE IVP PRN ×2 (04:00→23:40)
[2024-12-09] MEDS: HYDROCODONE/ACETAMINOPHEN 5-325 MG TABLET PO PRN (04:56)
[2024-12-09 06:30] LABS: GLUCOMETER DEV NAME(LOC) 6N.2C; GLUCOSE,POINT OF CARE 266 MG/DL (70-110)
[2024-12-09 07:21] LABS: PLATELET COUNT (AUTO) 133 K/uL (150-450); RED BLOOD CELL COUNT(AUTO) 3.41 MIL/uL (4.00-5.20); RED CELL DISTRIBUTION WIDTH 15.4 % (11.5-14.5); WHITE BLOOD COUNT (AUTO) 6.8 K/uL (4.5-11.0)
[2024-12-09 08:04] VITALS: BP 120/96; PULSE 92; RESP 18; TEMP 98.2; O2SAT 98
[2024-12-09] MEDS: DOCUSATE SODIUM 100 MG CAPSULE PO SCH (09:00)
[2024-12-09] MEDS: PANTOPRAZOLE SODIUM 40 MG DR TABLET PO SCH (09:04)
[2024-12-09] MEDS: *CLINICAL-LEVOFLOXACIN IVPB DOSING CLINICAL ONE (10:20)
[2024-12-09 11:45] LABS: GLUCOMETER DEV NAME(LOC) 6N.2C; GLUCOSE,POINT OF CARE 219 MG/DL (70-110)
[2024-12-09] MEDS: LEVOFLOXACIN 750 MG/D5% WATER 150 ML IV SCH (12:12)
[2024-12-09 13:54] LABS: ASPARTATE AMINOTRANSFERASE 27 U/L (15-37); CALCIUM, TOTAL 8.2 mg/dL (8.8-10.5); CREATININE 0.68 mg/dL (0.60-1.30); GLOMERULAR FILTR. RATE CALC > 60 mL/min (>60); GLUCOSE,RANDOM 268 mg/dL (70-110); SODIUM SERUM 136 mmol/L (136-145); TOTAL PROTEIN, SERUM 6.4 g/dL (6.4-8.2); UREA NITROGEN, BLOOD 18 mg/dL (7-18)
[2024-12-09 16:18] VITALS: BP 104/81; PULSE 99; RESP 18; TEMP 97.9; O2SAT 99
[2024-12-09] MEDS: DEXTROSE 50%-WATER 25 GM/50 ML SYRINGE IVP PRN (17:17)
[2024-12-09 19:10] LABS: GLUCOMETER DEV NAME(LOC) 6N.2C; GLUCOSE,POINT OF CARE 49 MG/DL (70-110)
[2024-12-09 19:11] LABS: GLUCOMETER DEV NAME(LOC) 6N.2C; GLUCOSE,POINT OF CARE 173 MG/DL (70-110)
[2024-12-09] MEDS: INSULIN GLARGINE,HUM.REC.ANLOG 100 UNITS/ML SQ SCH (21:00)
[2024-12-10] MEDS: SODIUM CHLORIDE 0.9% 1,000 ML IV SCH (03:47)
[2024-12-10 05:24] VITALS: BP 115/86; PULSE 100; RESP 18; TEMP 98.1; O2SAT 99
[2024-12-10 05:50] LABS: GLUCOMETER DEV NAME(LOC) 6N.1C; GLUCOSE,POINT OF CARE 151 MG/DL (70-110)
[2024-12-10 08:00] VITALS: BP 118/89; PULSE 90; RESP 18; TEMP 97.7; O2SAT 99
[2024-12-10] MEDS ORDERED: RINGERS SOLUTION,LACTATED 1,000 ML IV ONE (08:17)
[2024-12-10 08:28] LABS: PLATELET COUNT (AUTO) 171 K/uL (150-450); RED BLOOD CELL COUNT(AUTO) 3.72 MIL/uL (4.00-5.20); RED CELL DISTRIBUTION WIDTH 14.2 % (11.5-14.5); WHITE BLOOD COUNT (AUTO) 6.8 K/uL (4.5-11.0)
[2024-12-10] MEDS: ONDANSETRON HCL 4 MG/2 ML VIAL IVP PRN (10:39)
[2024-12-10] MEDS: CHLORHEXIDINE GLUCONATE 2% TOWELETTE [2'S/6'S] TP ONE (10:43)
[2024-12-10] MEDS: ETHYL ALCOHOL 62% ANTISEPTIC NASAL SANITIZER 0.6 ML AMPUL NASAL ONE (10:44)
[2024-12-10] MEDS: RINGERS SOLUTION,LACTATED 1,000 ML IV ONE (12:00)
[2024-12-10 13:15] LABS: GLUCOMETER DEV NAME(LOC) SDS.; GLUCOSE,POINT OF CARE 297 MG/DL (70-110)
[2024-12-10] MEDS: IOHEXOL 240 MG/ML 20 ML VIAL ONE (13:45)
[2024-12-10 15:21] LABS: GLUCOMETER DEV NAME(LOC) SDS.; GLUCOSE,POINT OF CARE 241 MG/DL (70-110)
[2024-12-10 15:30] VITALS: BP 97/74; PULSE 88; RESP 18; TEMP 97.5; O2SAT 95
[2024-12-10 19:55] LABS: GLUCOMETER DEV NAME(LOC) 6N.2C; GLUCOSE,POINT OF CARE 83 MG/DL (70-110)
[2024-12-10 19:55] LABS: GLUCOMETER DEV NAME(LOC) 6N.2C; GLUCOSE,POINT OF CARE 322 MG/DL (70-110)
[2024-12-10 20:33] VITALS: BP 103/70; PULSE 92; RESP 18; TEMP 99.1; O2SAT 98
[2024-12-10] MEDS: INSULIN GLARGINE,HUM.REC.ANLOG 100 UNITS/ML SQ SCH (21:00)
[2024-12-10 21:40] LABS: GLUCOMETER DEV NAME(LOC) 6N.1C; GLUCOSE,POINT OF CARE 132 MG/DL (70-110)
[2024-12-11 06:00] VITALS: BP 127/99; PULSE 101; RESP 18; TEMP 98.1; O2SAT 97
[2024-12-11 06:31] LABS: GLUCOMETER DEV NAME(LOC) 6N.2C; GLUCOSE,POINT OF CARE 232 MG/DL (70-110)
[2024-12-11 06:33] LABS: PLATELET COUNT (AUTO) 179 K/uL (150-450); RED BLOOD CELL COUNT(AUTO) 3.51 MIL/uL (4.00-5.20); RED CELL DISTRIBUTION WIDTH 14.3 % (11.5-14.5); WHITE BLOOD COUNT (AUTO) 7.2 K/uL (4.5-11.0)
[2024-12-11 08:12] VITALS: BP 120/86; PULSE 61; RESP 18; TEMP 98.4; O2SAT 97
[2024-12-11] MEDS: PHENAZOPYRIDINE HCL 200 MG TABLET PO PRN (10:32)
[2024-12-11 16:14] VITALS: BP 91/67; PULSE 86; RESP 18; TEMP 98.1; O2SAT 94
[2024-12-11] MEDS ORDERED: SODIUM CHLORIDE 0.9% 500 ML IV ONE (18:16)
[2024-12-11 19:10] LABS: GLUCOMETER DEV NAME(LOC) 6N.2C; GLUCOSE,POINT OF CARE 333 MG/DL (70-110)
[2024-12-11 19:36] VITALS: BP 99/67; PULSE 83; RESP 18; TEMP 98.1; O2SAT 98
[2024-12-11 19:45] LABS: PLATELET COUNT (AUTO) 160 K/uL (150-450); RED BLOOD CELL COUNT(AUTO) 3.50 MIL/uL (4.00-5.20); RED CELL DISTRIBUTION WIDTH 14.0 % (11.5-14.5); WHITE BLOOD COUNT (AUTO) 6.5 K/uL (4.5-11.0)
[2024-12-11] MEDS: ERYTHROMYCIN BASE 500 MG TABLET PO SCH (20:37)
[2024-12-11] MEDS: INSULIN GLARGINE,HUM.REC.ANLOG 100 UNITS/ML SQ SCH (20:55)
[2024-12-12 03:59] VITALS: BP 109/86; PULSE 96; RESP 20; TEMP 98.1; O2SAT 99
[2024-12-12 07:49] LABS: ASPARTATE AMINOTRANSFERASE 21 U/L (15-37); CREATININE 0.91 mg/dL (0.60-1.30); GLOMERULAR FILTR. RATE CALC > 60 mL/min (>60); GLUCOSE,RANDOM 179 mg/dL (70-110); SODIUM SERUM 134 mmol/L (136-145); TOTAL PROTEIN, SERUM 5.8 g/dL (6.4-8.2); UREA NITROGEN, BLOOD 11 mg/dL (7-18)
[2024-12-12 07:52] LABS: CALCIUM, TOTAL 8.0 mg/dL (8.8-10.5)
[2024-12-12 08:03] VITALS: BP 120/93; PULSE 83; RESP 19; TEMP 97.9; O2SAT 98
[2024-12-12 12:10] LABS: GLUCOMETER DEV NAME(LOC) 6N.2C; GLUCOSE,POINT OF CARE 59 MG/DL (70-110)
[2024-12-12 12:10] LABS: GLUCOMETER DEV NAME(LOC) 6N.2C; GLUCOSE,POINT OF CARE 192 MG/DL (70-110)
[2024-12-12 12:10] LABS: GLUCOMETER DEV NAME(LOC) 6N.2C; GLUCOSE,POINT OF CARE 136 MG/DL (70-110)
[2024-12-12 12:10] LABS: GLUCOMETER DEV NAME(LOC) 6N.2C; GLUCOSE,POINT OF CARE 72 MG/DL (70-110)
[2024-12-12] MEDS: ONDANSETRON HCL 4 MG/2 ML VIAL IVP PRN (12:58)
[2024-12-12] MEDS: DiphenhydrAMINE HCL 25 MG/10 ML SOLUTION UDCUP PO SCH (13:23)
[2024-12-12 15:37] VITALS: BP 101/79; PULSE 86; RESP 19; TEMP 98; O2SAT 99
[2024-12-12 17:21] LABS: GLUCOMETER DEV NAME(LOC) 6N.2C; GLUCOSE,POINT OF CARE 120 MG/DL (70-110)
[2024-12-12 20:00] VITALS: BP 117/97; PULSE 85; RESP 20; TEMP 98.1; O2SAT 100
[2024-12-13 04:00] VITALS: BP 107/80; PULSE 87; RESP 20; TEMP 98.4; O2SAT 99
[2024-12-13 05:41] LABS: GLUCOMETER DEV NAME(LOC) 6N.2C; GLUCOSE,POINT OF CARE 143 MG/DL (70-110)
[2024-12-13 05:41] LABS: GLUCOMETER DEV NAME(LOC) 6N.1C; GLUCOSE,POINT OF CARE 114 MG/DL (70-110)
[2024-12-13 07:11] VITALS: BP 121/94; PULSE 84; RESP 18; TEMP 98.2; O2SAT 99
[2024-12-13 11:05] VITALS: BP 118/90; PULSE 85; RESP 18; O2SAT 99
[2024-12-13 15:05] VITALS: BP 118/95; PULSE 86; RESP 18; TEMP 97.7; O2SAT 99
[2024-12-13 17:16] LABS: GLUCOMETER DEV NAME(LOC) 6N.1C; GLUCOSE,POINT OF CARE 98 MG/DL (70-110)
[2024-12-13 17:16] LABS: GLUCOMETER DEV NAME(LOC) 6N.1C; GLUCOSE,POINT OF CARE 209 MG/DL (70-110)
[2024-12-13 19:38] VITALS: BP 117/92; PULSE 103; RESP 18; TEMP 98.1; O2SAT 99
[2024-12-13 19:46] LABS: PHOSPHORUS 2.9 mg/dL (2.5-4.9)
[2024-12-13] MEDS: MAGNESIUM SULFATE 4 GM/WATER 100 ML IV ONE (21:16)
[2024-12-13 22:16] LABS: GLUCOMETER DEV NAME(LOC) 6N.2C; GLUCOSE,POINT OF CARE 252 MG/DL (70-110)
[2024-12-13 22:16] LABS: GLUCOMETER DEV NAME(LOC) 6N.2C; GLUCOSE,POINT OF CARE 222 MG/DL (70-110)
[2024-12-14 00:21] VITALS: BP 121/94; PULSE 99; RESP 18; TEMP 98.4; O2SAT 96
[2024-12-14 02:31] VITALS: BP 113/87; PULSE 93; RESP 18; TEMP 98.1; O2SAT 99
[2024-12-14 05:55] VITALS: BP 105/86; PULSE 95; RESP 18; O2SAT 98
[2024-12-14 06:36] LABS: GLUCOMETER DEV NAME(LOC) 6N.2C; GLUCOSE,POINT OF CARE 261 MG/DL (70-110)
[2024-12-14 08:35] VITALS: BP 91/64; PULSE 99; RESP 18; TEMP 98.1; O2SAT 98
[2024-12-14] MEDS: MULTIVITAMINS WITH MINERALS, THERAPEUTIC TABLET PO SCH (08:56)
[2024-12-14] MEDS: THIAMINE 100 MG TABLET PO SCH (08:56)
[2024-12-14 12:15] LABS: GLUCOMETER DEV NAME(LOC) 6N.2C; GLUCOSE,POINT OF CARE 265 MG/DL (70-110)
[2024-12-14 16:41] VITALS: BP 100/69; PULSE 96; RESP 18; TEMP 98.6; O2SAT 99
[2024-12-14 18:30] LABS: GLUCOMETER DEV NAME(LOC) 6N.1C; GLUCOSE,POINT OF CARE 288 MG/DL (70-110)
[2024-12-14] MEDS: PROMETHAZINE HCL 25 MG TABLET PO SCH (21:16)
[2024-12-15 13:26] LABS: GLUCOMETER DEV NAME(LOC) 6N.2C; GLUCOSE,POINT OF CARE 356 MG/DL (70-110)
[2024-12-15 15:00] VITALS: BP 100/73; PULSE 103; RESP 19; TEMP 98.4; O2SAT 98
[2024-12-15 17:20] LABS: GLUCOMETER DEV NAME(LOC) 6N.2C; GLUCOSE,POINT OF CARE 289 MG/DL (70-110)
[2024-12-15 19:25] VITALS: BP 96/52; PULSE 108; RESP 18; TEMP 98.6; O2SAT 98
[2024-12-15 22:01] LABS: GLUCOMETER DEV NAME(LOC) 6N.2C; GLUCOSE,POINT OF CARE 340 MG/DL (70-110)
[2024-12-16 04:50] VITALS: BP 97/58; PULSE 106; RESP 18; TEMP 97.7; O2SAT 99
[2024-12-16] MEDS: *CLINICAL-PERIPHERAL PARENTERAL NUTRITION DOSING CLINICAL ONE (10:44)
[2024-12-16 11:06] LABS: GLUCOMETER DEV NAME(LOC) 6N.1C; GLUCOSE,POINT OF CARE 533 MG/DL (70-110)
[2024-12-16] MEDS: INSULIN GLARGINE,HUM.REC.ANLOG 100 UNITS/ML SQ SCH (11:13)
[2024-12-16 16:35] VITALS: BP 74/46; PULSE 89; RESP 17; TEMP 97.6; O2SAT 97
[2024-12-16 18:27] LABS: CALCIUM, TOTAL 8.4 mg/dL (8.8-10.5); CREATININE 2.05 mg/dL (0.60-1.30); GLOMERULAR FILTR. RATE CALC 29.0 mL/min (>60); SODIUM SERUM 132.0 mmol/L (136-145); UREA NITROGEN, BLOOD 30.0 mg/dL (7-18)
[2024-12-16 18:31] LABS: ASPARTATE AMINOTRANSFERASE 16.0 U/L (15-37); PHOSPHORUS 5.3 mg/dL (2.5-4.9); TOTAL PROTEIN, SERUM 6.5 g/dL (6.4-8.2)
[2024-12-16 18:34] LABS: GLUCOSE,RANDOM 624.0 mg/dL (70-110)
[2024-12-16 19:51] VITALS: BP 90/62; PULSE 103; RESP 18; TEMP 97.5; O2SAT 100
[2024-12-16 20:10] LABS: GLUCOMETER DEV NAME(LOC) 4S.2; GLUCOSE,POINT OF CARE 462 MG/DL (70-110)
[2024-12-16] MEDS: SODIUM CHLORIDE 0.9% 1,000 ML IV ONE (20:59)
[2024-12-16 21:00] VITALS: BP 85/60; PULSE 104; RESP 20; TEMP 94.4
[2024-12-16] MEDS ORDERED: SODIUM CHLORIDE 0.45% 1,000 ML IV PRN (21:00)
[2024-12-16] MEDS: INSULIN REGULAR, HUMAN 100 UNITS/ML IVP PRN (21:11)
[2024-12-16 21:13] LABS: PLATELET COUNT (AUTO) 206 K/uL (150-450); RED BLOOD CELL COUNT(AUTO) 3.42 MIL/uL (4.00-5.20); RED CELL DISTRIBUTION WIDTH 14.6 % (11.5-14.5); WHITE BLOOD COUNT (AUTO) 10.1 K/uL (4.5-11.0)
[2024-12-16 21:20] LABS: CALCIUM, TOTAL 8.2 mg/dL (8.8-10.5); CREATININE 2.09 mg/dL (0.60-1.30); GLOMERULAR FILTR. RATE CALC 28.0 mL/min (>60); SODIUM SERUM 132.0 mmol/L (136-145); UREA NITROGEN, BLOOD 29.0 mg/dL (7-18)
[2024-12-16] MEDS: MAGNESIUM SULFATE 2 GM/WATER 50 ML IV ONE (21:25)
[2024-12-16 21:30] LABS: GLUCOSE,RANDOM 472.0 mg/dL (70-110)
[2024-12-16] MEDS: SODIUM CHLORIDE 0.9% 1,000 ML IV SCH (21:31)
[2024-12-16 21:32] LABS: LACTIC ACID 2.5 mmol/L (0.4-2.0)
[2024-12-16] MEDS: INSULIN REGULAR, HUMAN 100 UNITS in SODIUM CHLORIDE 0.9% 99 ML IV PRN (21:37)
[2024-12-16 21:57] LABS: ABG BASE EXCESS -21.9 mmol/L (-2.0-3.0); ABG CARBOXYHEMOGLOBIN 0.3 % (0.5-1.5); ABG HCO3 9.5 mmol/L (21.0-28.0); ABG METHEMOGLOBIN 0.0 % (0.0-1.5); ABG OXYGEN CONTENT 13.9 mL/dL (15.0-23.0); ABG OXYGEN SATURATION 98.6 % (94.0-98.0); ABG OXYHEMOGLOBIN 98.3 % (94.0-98.0); ABG TOTAL HEMOGLOBIN 9.9 G/dL (12.0-16.0); FRACTIONATED INSPIRED OXYGEN 21.0 % (21-100.0); PO2, ARTERIAL BG 110.7 mmHg (83.0-108.0); SOURCE, BLOOD GAS ARTERIAL; TEMPERATURE, FAHRENHEIT, BG 94.1 FAHREN (96.0-98.6)
[2024-12-16 22:02] LABS: ABG PCO2 16 mmHg (32.0-45.0); ABG PH 7.214 (7.350-7.450); ALLEN TEST, BLOOD GAS Positive; O2 DEVICE,BLOOD GAS ROOM AIR (ROOM AIR); SITE, BLOOD GAS LFT RADIAL
[2024-12-16] MEDS: POTASSIUM CHLORIDE 40 MEQ in SODIUM CHLORIDE 0.45% 1,000 ML IV PRN (22:20)
[2024-12-16 22:40] VITALS: BP 90/54; PULSE 100; RESP 18; TEMP 96
[2024-12-16 23:30] LABS: APPEARANCE,URINE CLEAR (CLEAR); GLUCOSE, URINE (UA) >=1000 mg/dL (NEGATIVE); LEUKOCYTE ESTERASE ,URINE TRACE (NEGATIVE); NITRATE,URINE NEGATIVE (NEGATIVE); OCCULT BLOOD,URINE SMALL (NEGATIVE); SPECIFIC GRAVITIY, URINE 1.014 (1.003-1.030)
[2024-12-16 23:34] LABS: CREATININE,URINE RANDOM 21.0 mg/dL (30.0-125.0); UREA NITROGEN,URINE RANDOM 205 mg/dL (350-1000)
[2024-12-17] VITALS: BP 92/53; PULSE 83; PULSE 93; RESP 18; TEMP 96.1
[2024-12-17 00:05] LABS: SQUAMOUS EPITHELIAL CELL,UR Few /LPF (None Seen)
[2024-12-17] MEDS: DEXTROSE 5%-0.45% SODIUM CHL 1,000 ML IV PRN (00:15)
[2024-12-17 01:42] LABS: CALCIUM, TOTAL 7.8 mg/dL (8.8-10.5); CREATININE 1.6 mg/dL (0.60-1.30); GLOMERULAR FILTR. RATE CALC 38.0 mL/min (>60); GLUCOSE,RANDOM 161.0 mg/dL (70-110); SODIUM SERUM 136.0 mmol/L (136-145); UREA NITROGEN, BLOOD 25.0 mg/dL (7-18)
[2024-12-17 04:00] VITALS: BP 109/74; PULSE 99; RESP 19; TEMP 98.1
[2024-12-17 05:53] LABS: PLATELET COUNT (AUTO) 183 K/uL (150-450); RED BLOOD CELL COUNT(AUTO) 3.23 MIL/uL (4.00-5.20); RED CELL DISTRIBUTION WIDTH 14.9 % (11.5-14.5); WHITE BLOOD COUNT (AUTO) 10.0 K/uL (4.5-11.0)
[2024-12-17] MEDS: DEXTROSE 50%-WATER 25 GM/50 ML SYRINGE IVP PRN (05:57)
[2024-12-17 06:08] LABS: ASPARTATE AMINOTRANSFERASE 16 U/L (15-37); CALCIUM, TOTAL 8.1 mg/dL (8.8-10.5); CREATININE 1.37 mg/dL (0.60-1.30); GLOMERULAR FILTR. RATE CALC 46 mL/min (>60); GLUCOSE,RANDOM 114 mg/dL (70-110); SODIUM SERUM 131 mmol/L (136-145); TOTAL PROTEIN, SERUM 5.9 g/dL (6.4-8.2); UREA NITROGEN, BLOOD 22 mg/dL (7-18)
[2024-12-17 06:18] LABS: PHOSPHORUS 0.7 mg/dL (2.5-4.9)
[2024-12-17 06:19] LABS: ACETONE,BLOOD TRACE (NEGATIVE)
[2024-12-17 06:20] LABS: GLUCOMETER DEV NAME(LOC) ICU.S7; GLUCOSE,POINT OF CARE 296 MG/DL (70-110)
[2024-12-17 06:20] LABS: GLUCOMETER DEV NAME(LOC) ICU.S7; GLUCOSE,POINT OF CARE 103 MG/DL (70-110)
[2024-12-17 06:20] LABS: GLUCOMETER DEV NAME(LOC) ICU.S7; GLUCOSE,POINT OF CARE 102 MG/DL (70-110)
[2024-12-17 06:20] LABS: GLUCOMETER DEV NAME(LOC) ICU.S7; GLUCOSE,POINT OF CARE 361 MG/DL (70-110)
[2024-12-17 06:20] LABS: GLUCOMETER DEV NAME(LOC) ICU.S7; GLUCOSE,POINT OF CARE 424 MG/DL (70-110)
[2024-12-17 06:20] LABS: GLUCOMETER DEV NAME(LOC) ICU.S7; GLUCOSE,POINT OF CARE 174 MG/DL (70-110)
[2024-12-17] MEDS ORDERED: POTASSIUM PHOS,M-BASIC-D-BASIC 20 MMOL in SODIUM CHLORIDE 0.45% 500 ML IV ONE (07:00)
[2024-12-17 07:37] LABS: GLUCOMETER DEV NAME(LOC) ICU.S7; GLUCOSE,POINT OF CARE 193 MG/DL (70-110)
[2024-12-17 08:00] VITALS: BP 112/66; PULSE 95; RESP 11; TEMP 98.2
[2024-12-17] MEDS: POTASSIUM CHL 20 MEQ/0.45% NS 1,000 ML IV PRN (08:32)
[2024-12-17] MEDS: ALBUMIN HUMAN 5%-12.5GM/250ML 250 ML IV ONE (09:52)
[2024-12-17 10:26] LABS: GLUCOMETER DEV NAME(LOC) ICUN.6; GLUCOSE,POINT OF CARE 199 MG/DL (70-110)
[2024-12-17 10:26] LABS: GLUCOMETER DEV NAME(LOC) ICUN.6; GLUCOSE,POINT OF CARE 206 MG/DL (70-110)
[2024-12-17 10:26] LABS: GLUCOMETER DEV NAME(LOC) ICUN.6; GLUCOSE,POINT OF CARE 134 MG/DL (70-110)
[2024-12-17 10:26] LABS: GLUCOMETER DEV NAME(LOC) ICUN.6; GLUCOSE,POINT OF CARE 66 MG/DL (70-110)
[2024-12-17 10:26] LABS: GLUCOMETER DEV NAME(LOC) ICUN.6; GLUCOSE,POINT OF CARE 140 MG/DL (70-110)
[2024-12-17 10:30] LABS: GLUCOMETER DEV NAME(LOC) ICU.S7; GLUCOSE,POINT OF CARE 127 MG/DL (70-110)
[2024-12-17 10:30] LABS: GLUCOMETER DEV NAME(LOC) ICU.S7; GLUCOSE,POINT OF CARE 138 MG/DL (70-110)
[2024-12-17 10:30] LABS: GLUCOMETER DEV NAME(LOC) ICU.S7; GLUCOSE,POINT OF CARE 91 MG/DL (70-110)
[2024-12-17 10:50] LABS: CALCIUM, TOTAL 7.5 mg/dL (8.8-10.5); CREATININE 1.11 mg/dL (0.60-1.30); GLOMERULAR FILTR. RATE CALC 58.0 mL/min (>60); GLUCOSE,RANDOM 91.0 mg/dL (70-110); SODIUM SERUM 132.0 mmol/L (136-145); UREA NITROGEN, BLOOD 19.0 mg/dL (7-18)
[2024-12-17 11:00] LABS: PHOSPHORUS 0.7 mg/dL (2.5-4.9)
[2024-12-17 11:42] LABS: ACETONE,BLOOD 1:2 (NEGATIVE)
[2024-12-17 11:45] LABS: GLUCOMETER DEV NAME(LOC) ICU.S7; GLUCOSE,POINT OF CARE 86 MG/DL (70-110)
[2024-12-17] MEDS: CALCIUM GLUCONATE 100 MG/ML 10 ML IVP ONE (11:59)
[2024-12-17 12:00] VITALS: BP 115/80; PULSE 89; RESP 13; TEMP 98.6
[2024-12-17] MEDS: POTASSIUM PHOS,M-BASIC-D-BASIC 20 MMOL in SODIUM CHLORIDE 0.45% 500 ML IV PRN (12:00)
[2024-12-17] MEDS: SODIUM PHOS,M-BASIC-D-BASIC 20 MEQ in DEXTROSE 5%-WATER 100 ML IV ONE (12:14)
[2024-12-17 13:22] LABS: GLUCOMETER DEV NAME(LOC) ICUN.6; GLUCOSE,POINT OF CARE 81 MG/DL (70-110)
[2024-12-17 13:22] LABS: GLUCOMETER DEV NAME(LOC) ICUN.6; GLUCOSE,POINT OF CARE 90 MG/DL (70-110)
[2024-12-17 15:11] LABS: CALCIUM, TOTAL 7.6 mg/dL (8.8-10.5); CREATININE 1.03 mg/dL (0.60-1.30); GLOMERULAR FILTR. RATE CALC > 60 mL/min (>60); GLUCOSE,RANDOM 188 mg/dL (70-110); SODIUM SERUM 128 mmol/L (136-145); UREA NITROGEN, BLOOD 17 mg/dL (7-18)
[2024-12-17 15:15] LABS: PHOSPHORUS 3.4 mg/dL (2.5-4.9)
[2024-12-17 15:50] LABS: GLUCOMETER DEV NAME(LOC) ICUN.6; GLUCOSE,POINT OF CARE 235 MG/DL (70-110)
[2024-12-17 16:00] VITALS: BP 121/91; PULSE 99; RESP 11; TEMP 98.2
[2024-12-17 17:46] LABS: GLUCOMETER DEV NAME(LOC) ICU.S7; GLUCOSE,POINT OF CARE 145 MG/DL (70-110)
[2024-12-17 17:46] LABS: GLUCOMETER DEV NAME(LOC) ICUN.6; GLUCOSE,POINT OF CARE 155 MG/DL (70-110)
[2024-12-17 17:46] LABS: GLUCOMETER DEV NAME(LOC) ICU.S7; GLUCOSE,POINT OF CARE 180 MG/DL (70-110)
[2024-12-17 19:09] LABS: CALCIUM, TOTAL 7.3 mg/dL (8.8-10.5); CREATININE 1.00 mg/dL (0.60-1.30); GLOMERULAR FILTR. RATE CALC > 60 mL/min (>60); GLUCOSE,RANDOM 178 mg/dL (70-110); SODIUM SERUM 127 mmol/L (136-145); UREA NITROGEN, BLOOD 14 mg/dL (7-18)
[2024-12-17 19:25] LABS: PHOSPHORUS 2.5 mg/dL (2.5-4.9)
[2024-12-17 20:00] VITALS: BP 125/92; PULSE 95; RESP 12; TEMP 98.2
[2024-12-17 21:41] LABS: GLUCOMETER DEV NAME(LOC) ICUN.6; GLUCOSE,POINT OF CARE 120 MG/DL (70-110)
[2024-12-17 21:41] LABS: GLUCOMETER DEV NAME(LOC) ICUN.6; GLUCOSE,POINT OF CARE 156 MG/DL (70-110)
[2024-12-17 21:41] LABS: GLUCOMETER DEV NAME(LOC) ICUN.6; GLUCOSE,POINT OF CARE 141 MG/DL (70-110)
[2024-12-17 23:10] LABS: CALCIUM, TOTAL 7.3 mg/dL (8.8-10.5); CREATININE 0.88 mg/dL (0.60-1.30); GLOMERULAR FILTR. RATE CALC > 60 mL/min (>60); GLUCOSE,RANDOM 104 mg/dL (70-110); SODIUM SERUM 126 mmol/L (136-145); UREA NITROGEN, BLOOD 11 mg/dL (7-18)
[2024-12-17 23:14] LABS: PHOSPHORUS 1.8 mg/dL (2.5-4.9)
[2024-12-18] VITALS (12 sets, daily range): BP systolic 108–128; BP diastolic 74–91; PULSE 70–106; RESP 12–17; TEMP 98.4–99.3; O2SAT 92–97
[2024-12-18 02:21] LABS: CALCIUM, TOTAL 7.7 mg/dL (8.8-10.5); CREATININE 0.76 mg/dL (0.60-1.30); GLOMERULAR FILTR. RATE CALC > 60 mL/min (>60); GLUCOSE,RANDOM 84 mg/dL (70-110); SODIUM SERUM 130 mmol/L (136-145); UREA NITROGEN, BLOOD 9 mg/dL (7-18)
[2024-12-18 05:51] LABS: GLUCOMETER DEV NAME(LOC) ICUN.6; GLUCOSE,POINT OF CARE 90 MG/DL (70-110)
[2024-12-18 05:51] LABS: GLUCOMETER DEV NAME(LOC) ICUN.6; GLUCOSE,POINT OF CARE 115 MG/DL (70-110)
[2024-12-18 05:51] LABS: GLUCOMETER DEV NAME(LOC) ICUN.6; GLUCOSE,POINT OF CARE 86 MG/DL (70-110)
[2024-12-18 05:55] LABS: GLUCOMETER DEV NAME(LOC) ICU.S7; GLUCOSE,POINT OF CARE 87 MG/DL (70-110)
[2024-12-18 05:55] LABS: GLUCOMETER DEV NAME(LOC) ICU.S7; GLUCOSE,POINT OF CARE 74 MG/DL (70-110)
[2024-12-18 05:55] LABS: GLUCOMETER DEV NAME(LOC) ICU.S7; GLUCOSE,POINT OF CARE 88 MG/DL (70-110)
[2024-12-18 05:56] LABS: GLUCOMETER DEV NAME(LOC) ICU.S7; GLUCOSE,POINT OF CARE 75 MG/DL (70-110)
[2024-12-18 06:01] LABS: PLATELET COUNT (AUTO) 176 K/uL (150-450); RED BLOOD CELL COUNT(AUTO) 3.40 MIL/uL (4.00-5.20); RED CELL DISTRIBUTION WIDTH 14.8 % (11.5-14.5); WHITE BLOOD COUNT (AUTO) 8.1 K/uL (4.5-11.0)
[2024-12-18 06:10] LABS: CALCIUM, TOTAL 7.8 mg/dL (8.8-10.5); CREATININE 0.78 mg/dL (0.60-1.30); GLOMERULAR FILTR. RATE CALC > 60 mL/min (>60); GLUCOSE,RANDOM 74 mg/dL (70-110); SODIUM SERUM 132 mmol/L (136-145); UREA NITROGEN, BLOOD 10 mg/dL (7-18)
[2024-12-18 06:13] LABS: PHOSPHORUS 1.9 mg/dL (2.5-4.9)
[2024-12-18 09:01] LABS: GLUCOMETER DEV NAME(LOC) ICU.S7; GLUCOSE,POINT OF CARE 117 MG/DL (70-110)
[2024-12-18] MEDS: SODIUM PHOS,M-BASIC-D-BASIC 20 MMOL in DEXTROSE 5%-WATER 150 ML IV ONE (11:50)
[2024-12-18] MEDS: MAGNESIUM SULFATE 4 GM/WATER 100 ML IV ONE (11:50)
[2024-12-18] MEDS ORDERED: SODIUM CHLORIDE 0.9% 250 ML IV ONE (12:13)
[2024-12-18 12:40] LABS: GLUCOMETER DEV NAME(LOC) ICUN.6; GLUCOSE,POINT OF CARE 50 MG/DL (70-110)
[2024-12-18 14:51] LABS: GLUCOMETER DEV NAME(LOC) ICU.S7; GLUCOSE,POINT OF CARE 186 MG/DL (70-110)
[2024-12-18 15:31] LABS: CALCIUM, TOTAL 7.9 mg/dL (8.8-10.5); CREATININE 0.84 mg/dL (0.60-1.30); GLOMERULAR FILTR. RATE CALC > 60 mL/min (>60); GLUCOSE,RANDOM 149 mg/dL (70-110); SODIUM SERUM 137 mmol/L (136-145); UREA NITROGEN, BLOOD 7 mg/dL (7-18)
[2024-12-18 16:11] LABS: GLUCOMETER DEV NAME(LOC) ICU.S7; GLUCOSE,POINT OF CARE 140 MG/DL (70-110)
[2024-12-18] MEDS ORDERED: POTASSIUM CHL 10 MEQ/WATER 50 ML IV PRN ×2 (18:30)
[2024-12-18] MEDS ORDERED: POTASSIUM CHLORIDE 20 MEQ ER TABLET PO PRN (18:30)
[2024-12-18] MEDS: POTASSIUM CHLORIDE 20 MEQ ER TABLET PO PRN (18:44)
[2024-12-18 18:56] LABS: GLUCOMETER DEV NAME(LOC) ICU.S7; GLUCOSE,POINT OF CARE 85 MG/DL (70-110)
[2024-12-18 20:20] LABS: GLUCOMETER DEV NAME(LOC) ICUN.6; GLUCOSE,POINT OF CARE 189 MG/DL (70-110)
[2024-12-18 20:20] LABS: GLUCOMETER DEV NAME(LOC) ICUN.6; GLUCOSE,POINT OF CARE 62 MG/DL (70-110)
[2024-12-18 21:11] LABS: GLUCOMETER DEV NAME(LOC) ICU.S7; GLUCOSE,POINT OF CARE 132 MG/DL (70-110)
[2024-12-19] VITALS (7 sets, daily range): BP systolic 127–137; BP diastolic 90–99; PULSE 88–102; RESP 11–16; TEMP 98.2–99; O2SAT 94–100
[2024-12-19 00:16] LABS: GLUCOMETER DEV NAME(LOC) ICUN.6; GLUCOSE,POINT OF CARE 49 MG/DL (70-110)
[2024-12-19 00:46] LABS: GLUCOMETER DEV NAME(LOC) ICU.S7; GLUCOSE,POINT OF CARE 188 MG/DL (70-110)
[2024-12-19] MEDS: DEXTROSE 5%-0.45% SODIUM CHL 1,000 ML IV SCH (00:48)
[2024-12-19 04:06] LABS: GLUCOMETER DEV NAME(LOC) ICU.S7; GLUCOSE,POINT OF CARE 121 MG/DL (70-110)
[2024-12-19 05:39] LABS: PLATELET COUNT (AUTO) 167 K/uL (150-450); RED BLOOD CELL COUNT(AUTO) 3.56 MIL/uL (4.00-5.20); RED CELL DISTRIBUTION WIDTH 15.0 % (11.5-14.5); WHITE BLOOD COUNT (AUTO) 4.9 K/uL (4.5-11.0)
[2024-12-19 05:48] LABS: CALCIUM, TOTAL 7.9 mg/dL (8.8-10.5); CREATININE 0.67 mg/dL (0.60-1.30); GLOMERULAR FILTR. RATE CALC > 60 mL/min (>60); GLUCOSE,RANDOM 125 mg/dL (70-110); SODIUM SERUM 137 mmol/L (136-145); UREA NITROGEN, BLOOD 4 mg/dL (7-18)
[2024-12-19 10:26] LABS: GLUCOMETER DEV NAME(LOC) ICU.S7; GLUCOSE,POINT OF CARE 100 MG/DL (70-110)
[2024-12-19 13:20] LABS: GLUCOMETER DEV NAME(LOC) ICU.S7; GLUCOSE,POINT OF CARE 115 MG/DL (70-110)
[2024-12-19] MEDS: SODIUM PHOS,M-BASIC-D-BASIC 20 MMOL in DEXTROSE 5%-WATER 150 ML IV ONE (13:48)
[2024-12-19] MEDS: MAGNESIUM SULFATE 1 GM in DEXTROSE 5%-WATER 50 ML IV ONE (13:49)
[2024-12-19 16:00] LABS: GLUCOMETER DEV NAME(LOC) ICU.S7; GLUCOSE,POINT OF CARE 164 MG/DL (70-110)
[2024-12-19 22:26] LABS: GLUCOMETER DEV NAME(LOC) ICU.S7; GLUCOSE,POINT OF CARE 129 MG/DL (70-110)
[2024-12-20] VITALS (7 sets, daily range): BP systolic 111–149; BP diastolic 76–94; PULSE 82–102; RESP 12–17; TEMP 98–98.8; O2SAT 80–100
[2024-12-20 06:05] LABS: GLUCOMETER DEV NAME(LOC) ICU.S7; GLUCOSE,POINT OF CARE 247 MG/DL (70-110)
[2024-12-20 07:16] LABS: CALCIUM, TOTAL 8.2 mg/dL (8.8-10.5); CREATININE 0.72 mg/dL (0.60-1.30); GLOMERULAR FILTR. RATE CALC > 60 mL/min (>60); GLUCOSE,RANDOM 242 mg/dL (70-110); SODIUM SERUM 137 mmol/L (136-145); UREA NITROGEN, BLOOD 2 mg/dL (7-18)
[2024-12-20 07:30] LABS: PHOSPHORUS 2.7 mg/dL (2.5-4.9)
[2024-12-20 08:15] LABS: GLUCOMETER DEV NAME(LOC) ICUN.6; GLUCOSE,POINT OF CARE 247 MG/DL (70-110)
[2024-12-20] MEDS: MAGNESIUM SULFATE 2 GM/WATER 50 ML IV ONE (10:24)
[2024-12-20 12:01] LABS: GLUCOMETER DEV NAME(LOC) ICU.S7; GLUCOSE,POINT OF CARE 266 MG/DL (70-110)
[2024-12-20 18:41] LABS: GLUCOMETER DEV NAME(LOC) 6S.2; GLUCOSE,POINT OF CARE 327 MG/DL (70-110)
[2024-12-20 20:55] LABS: GLUCOMETER DEV NAME(LOC) 4E.2; GLUCOSE,POINT OF CARE 317 MG/DL (70-110)
[2024-12-21] VITALS (7 sets, daily range): BP systolic 81–122; BP diastolic 55–90; PULSE 89–105; RESP 16–18; TEMP 97.9–98.8; O2SAT 98–100
[2024-12-21] MEDS: ZOLPIDEM TARTRATE 5 MG TABLET PO PRN (02:21)
[2024-12-21 06:11] LABS: GLUCOMETER DEV NAME(LOC) 4E.2; GLUCOSE,POINT OF CARE 318 MG/DL (70-110)
[2024-12-21] MEDS: INSULIN LISPRO 100 UNITS/ML SQ PRN (06:23)
[2024-12-21] MEDS: SODIUM CHLORIDE 0.9% 1,000 ML IV ONE ×2 (08:03→14:00)
[2024-12-21 11:55] LABS: GLUCOMETER DEV NAME(LOC) 6S.2; GLUCOSE,POINT OF CARE 248 MG/DL (70-110)
[2024-12-21 13:56] LABS: GLUCOMETER DEV NAME(LOC) 6S.2; GLUCOSE,POINT OF CARE 181 MG/DL (70-110)
[2024-12-21 20:55] LABS: GLUCOMETER DEV NAME(LOC) 4E.2; GLUCOSE,POINT OF CARE 369 MG/DL (70-110)
[2024-12-21] MEDS: LOPERAMIDE HCL 2 MG CAPSULE PO PRN (22:52)
[2024-12-22 05:14] VITALS: BP 91/66; PULSE 106; RESP 16; TEMP 98.4; O2SAT 98
[2024-12-22 09:29] VITALS: BP 104/65; PULSE 96; RESP 18; TEMP 97.7; O2SAT 95
== END 2024-12-22 14:05 | disposition left against medical advice (07) | DRG 659 ==
LOC: EMS 16:43 → EDH 21:53 → 4E 23:31 → ICU 12-16 20:29 → 6S 12-20 12:50
PROVIDERS: ADMIT Internal Medicine; ATTEND Internal Medicine
PROC: BT1D1ZZ Fluoroscopy of Right Kidney, Ureter and Bladder using Low Osmolar Contrast (ICD-10-PCS; 2024-12-10)
PROC: 0T768DZ Dilation of Right Ureter with Intraluminal Device, Via Natural or Artificial Opening Endoscopic (ICD-10-PCS; principal; 2024-12-10 13:09)
PROC: 05H933Z Insertion of Infusion Device into Right Brachial Vein, Percutaneous Approach (ICD-10-PCS; 2024-12-15)
PROC: B54MZZA Ultrasonography of Right Upper Extremity Veins, Guidance (ICD-10-PCS; 2024-12-15)
DX: N13.2 Hydronephrosis with renal and ureteral calculous obstruction (principal); E10.10 Type 1 diabetes mellitus with ketoacidosis without coma; E44.0 Moderate protein-calorie malnutrition; K86.1 Other chronic pancreatitis; Z68.1 Body mass index [BMI] 19.9 or less, adult; N17.9 Acute kidney failure, unspecified; K80.20 Calculus of gallbladder without cholecystitis without obstruction; K31.84 Gastroparesis; D64.9 Anemia, unspecified; K44.9 Diaphragmatic hernia without obstruction or gangrene; E83.42 Hypomagnesemia; F41.9 Anxiety disorder, unspecified; E83.39 Other disorders of phosphorus metabolism; E10.43 Type 1 diabetes mellitus with diabetic autonomic (poly)neuropathy; N21.1 Calculus in urethra; E86.0 Dehydration; Z53.29 Procedure and treatment not carried out because of patient's decision for other reasons; Z79.4 Long term (current) use of insulin; Z87.442 Personal history of urinary calculi; Z91.199 Patient's noncompliance with other medical treatment and regimen due to unspecified reason; Z93.1 Gastrostomy status; Z88.8 Allergy status to other drugs, medicaments and biological substances; Z88.6 Allergy status to analgesic agent
CPT/HCPCS: 36245; 36569; 71045; 74176; 76937; 80048; 80053; 80307; 81001; 82009; 82040; 82570; 82805; 82962; 83036; 83605; 83690; 83735; 83930; 84100; 84145; 84300; 84540; 84702; 85025; 87040; 93005; 99285; G0378; J0610; J0696; J1100; J1171; J1644; J1815; J1956; J2060; J2250; J2270; J2405; J2704; J3010; J3475; J3480; J3490; J7030; J7040; J7050; J7060; J7120; P9041; Q9966; 36415-L1; 36415-TC; X7700; Z7610

== ENCOUNTER 2025-01-05 20:49 | Inpatient (IN) | payer OTHER ==
[~2025-01-05] VITALS: Ht 165.1 cm; Wt 54.5 kg
[~2025-01-05 20:49] MED LIST changes: -DEXAMETHASONE SOD PHOS 4 MG/ML VIAL ONE; -FentaNYL CITRATE PF 100 MCG/2 ML VIAL IM ONE; -LIDOCAINE/PF 2% 5 ML SYRINGE IVP ONE; -MIDAZOLAM HCL 2 MG/2 ML VIAL IVP ONE; -ONDANSETRON HCL 4 MG/2 ML VIAL ONE; -PROPOFOL 1% 20 ML VIAL IVP ONE; -ROCURONIUM BROMIDE 10 MG/ML 5 ML VIAL ONE; -SUGAMMADEX SODIUM 200 MG/2 ML VIAL IVP ONE
[2025-01-05 21:25] LABS: PLATELET COUNT (AUTO) 213 K/uL (150-450); RED BLOOD CELL COUNT(AUTO) 3.08 MIL/uL (4.00-5.20); RED CELL DISTRIBUTION WIDTH 14.3 % (11.5-14.5); WHITE BLOOD COUNT (AUTO) 6.4 K/uL (4.5-11.0)
[2025-01-05 21:31] LABS: CALCIUM, TOTAL 8.2 mg/dL (8.8-10.5); CREATININE 0.93 mg/dL (0.60-1.30); GLOMERULAR FILTR. RATE CALC > 60 mL/min (>60); GLUCOSE,RANDOM 235 mg/dL (70-110); SODIUM SERUM 140 mmol/L (136-145); UREA NITROGEN, BLOOD 17 mg/dL (7-18)
[2025-01-05 21:35] LABS: ASPARTATE AMINOTRANSFERASE 22.0 U/L (15-37); TOTAL PROTEIN, SERUM 6.5 g/dL (6.4-8.2)
[2025-01-05] MEDS ORDERED: MORPHINE SULFATE 2 MG/ML SYRINGE IVP ONE (22:30)
[2025-01-05] MEDS: ONDANSETRON HCL 4 MG/2 ML VIAL IVP ONE (23:38)
[2025-01-05] MEDS: SODIUM CHLORIDE 0.9% 1,000 ML IV ONE (23:38)
[2025-01-05] MEDS: MORPHINE SULFATE 4 MG/ML SYRINGE IVP ONE (23:38)
[2025-01-05] MEDS: ACETAMINOPHEN 650 MG/ISO-OSM 65 ML IV ONE (23:38)
[2025-01-05] MEDS ORDERED: SODIUM CHLORIDE 0.9% 100 ML ONE (23:57)
[2025-01-05] MEDS ORDERED: IOHEXOL 300 MG/ML 100 ML VIAL ONE (23:57)
[2025-01-06 01:50] LABS: APPEARANCE,URINE TURBID (CLEAR); GLUCOSE, URINE (UA) 300-500 mg/dL (NEGATIVE); LEUKOCYTE ESTERASE ,URINE LARGE (NEGATIVE); NITRATE,URINE POSITIVE (NEGATIVE); OCCULT BLOOD,URINE TRACE (NEGATIVE); SPECIFIC GRAVITIY, URINE 1.035 (1.003-1.030)
[2025-01-06 02:05] LABS: SQUAMOUS EPITHELIAL CELL,UR Few /LPF (None Seen); YEAST,URINE Few /HPF (None Seen)
[2025-01-06] MEDS: CEFEPIME HCL 1 GM in DEXTROSE 5%-WATER 50 ML IV ONE (03:24)
[2025-01-06] MEDS: ONDANSETRON HCL 4 MG/2 ML VIAL IVP ONE (04:34)
[2025-01-06 09:22] VITALS: BP 115/90; PULSE 96; RESP 18; TEMP 97.7; O2SAT 99
[2025-01-06] MEDS ORDERED: BISACODYL 10 MG RECTAL RECTAL SUPPOSITORY PR PRN (10:00)
[2025-01-06] MEDS ORDERED: MAGNESIUM HYDROXIDE SUSPENSION 30 ML UDCUP PO PRN (10:00)
[2025-01-06] MEDS ORDERED: ACETAMINOPHEN 325 MG TABLET PO PRN (10:00)
[2025-01-06] MEDS ORDERED: ZOLPIDEM TARTRATE 5 MG TABLET PO PRN (10:00)
[2025-01-06] MEDS ORDERED: MORPHINE SULFATE 2 MG/ML SYRINGE IVP PRN (10:00)
[2025-01-06] MEDS: *CLINICAL-LEVOFLOXACIN IVPB DOSING CLINICAL ONE (10:18)
[2025-01-06] MEDS: MORPHINE SULFATE 4 MG/ML SYRINGE IVP PRN (10:22)
[2025-01-06 11:41] LABS: PH,URINE DRUG SCREEN 6.0 (5.0-8.0)
[2025-01-06 11:49] LABS: ALCOHOL, URINE DRUG SCREEN NEGATIVE (NEGATIVE); AMPHET/METH SCREEN,URINE NEGATIVE (NEGATIVE); BARBITURATE SCREEN, URINE NEGATIVE (NEGATIVE); CANNABINOID SCREEN,URINE NEGATIVE (NEGATIVE); COCAINE SCREEN,URINE NEGATIVE (NEGATIVE); METHADONE SCREEN, URINE NEGATIVE (NEGATIVE)
[2025-01-06] MEDS: DEXTROSE 50%-WATER 25 GM/50 ML SYRINGE IVP PRN (11:58)
[2025-01-06] MEDS: LEVOFLOXACIN 500 MG/D5% WATER 100 ML IV SCH (11:58)
[2025-01-06] MEDS: HYDROCODONE/ACETAMINOPHEN 5-325 MG TABLET PO PRN (11:58)
[2025-01-06] MEDS ORDERED: SODIUM CHLORIDE 0.9% 500 ML IV ONE (12:00)
[2025-01-06 14:31] LABS: GLUCOMETER DEV NAME(LOC) 6N.2C; GLUCOSE,POINT OF CARE 67 MG/DL (70-110)
[2025-01-06] MEDS: HEPARIN SODIUM,PORCINE 5,000 UNITS/ML VIAL SQ SCH (16:00)
[2025-01-06 16:18] VITALS: BP 99/61; PULSE 98; RESP 18; TEMP 97.9; O2SAT 98
[2025-01-06 19:41] VITALS: BP 102/72; PULSE 94; RESP 18; TEMP 99.5; O2SAT 98
[2025-01-06] MEDS: DOCUSATE SODIUM 100 MG CAPSULE PO SCH (20:34)
[2025-01-06] MEDS: INSULIN GLARGINE,HUM.REC.ANLOG 100 UNITS/ML SQ SCH (20:35)
[2025-01-06 20:50] LABS: GLUCOMETER DEV NAME(LOC) 6N.2C; GLUCOSE,POINT OF CARE 153 MG/DL (70-110)
[2025-01-07 03:45] VITALS: BP 101/75; PULSE 80; RESP 18; TEMP 98.2; O2SAT 98
[2025-01-07 06:30] LABS: PLATELET COUNT (AUTO) 182 K/uL (150-450); RED BLOOD CELL COUNT(AUTO) 3.15 MIL/uL (4.00-5.20); RED CELL DISTRIBUTION WIDTH 14.2 % (11.5-14.5); WHITE BLOOD COUNT (AUTO) 9.1 K/uL (4.5-11.0)
[2025-01-07 06:36] LABS: GLUCOMETER DEV NAME(LOC) 6N.2C; GLUCOSE,POINT OF CARE 141 MG/DL (70-110)
[2025-01-07 06:56] LABS: CALCIUM, TOTAL 7.7 mg/dL (8.8-10.5); CREATININE 0.71 mg/dL (0.60-1.30); GLOMERULAR FILTR. RATE CALC > 60 mL/min (>60); GLUCOSE,RANDOM 134 mg/dL (70-110); SODIUM SERUM 138 mmol/L (136-145); UREA NITROGEN, BLOOD 13 mg/dL (7-18)
[2025-01-07 08:33] VITALS: BP 101/77; PULSE 85; RESP 18; TEMP 97.3; O2SAT 99
[2025-01-07] MEDS: PANTOPRAZOLE SODIUM 40 MG DR TABLET PO SCH (08:42)
[2025-01-07] MEDS: LEVOFLOXACIN 750 MG/D5% WATER 150 ML IV SCH (11:33)
[2025-01-07 11:56] LABS: GLUCOMETER DEV NAME(LOC) 6N.2C; GLUCOSE,POINT OF CARE 182 MG/DL (70-110)
[2025-01-07] MEDS: INSULIN LISPRO 100 UNITS/ML SQ PRN (17:58)
[2025-01-07 18:10] LABS: GLUCOMETER DEV NAME(LOC) 6N.2C; GLUCOSE,POINT OF CARE 419 MG/DL (70-110)
[2025-01-07] MEDS: INSULIN LISPRO 100 UNITS/ML SQ ONE (18:21)
[2025-01-07] MEDS: ONDANSETRON HCL 4 MG/2 ML VIAL IVP PRN (18:25)
[2025-01-07 20:00] VITALS: BP 101/69; PULSE 89; RESP 18; TEMP 97.9; O2SAT 97
[2025-01-08 04:00] VITALS: BP 111/80; PULSE 84; RESP 18; TEMP 98.1; O2SAT 98
[2025-01-08 06:01] LABS: GLUCOMETER DEV NAME(LOC) 6N.1C; GLUCOSE,POINT OF CARE 218 MG/DL (70-110)
[2025-01-08 07:27] LABS: PLATELET COUNT (AUTO) 216 K/uL (150-450); RED BLOOD CELL COUNT(AUTO) 3.21 MIL/uL (4.00-5.20); RED CELL DISTRIBUTION WIDTH 14.4 % (11.5-14.5); WHITE BLOOD COUNT (AUTO) 5.2 K/uL (4.5-11.0)
[2025-01-08 07:38] LABS: CALCIUM, TOTAL 8.1 mg/dL (8.8-10.5); CREATININE 0.83 mg/dL (0.60-1.30); GLOMERULAR FILTR. RATE CALC > 60 mL/min (>60); GLUCOSE,RANDOM 396 mg/dL (70-110); SODIUM SERUM 136 mmol/L (136-145); UREA NITROGEN, BLOOD 17 mg/dL (7-18)
[2025-01-08 08:06] VITALS: BP 122/87; PULSE 85; RESP 20; TEMP 98.2; O2SAT 99
[2025-01-08] MEDS ORDERED: AMOX-457 PO (12:16)
[2025-01-08] MEDS ORDERED: OXYC10TA59 PO (12:29)
[2025-01-08] MEDS ORDERED: GABA-1181 PO (12:32)
== END 2025-01-08 16:20 | disposition home or self-care (01) | DRG 690 ==
LOC: EMS 20:51 → EDH 01-06 06:37 → 6N 01-06 09:05
PROVIDERS: ADMIT Internal Medicine; ATTEND Internal Medicine
DX: N10 Acute pyelonephritis (principal); E11.65 Type 2 diabetes mellitus with hyperglycemia; D64.9 Anemia, unspecified; Z87.442 Personal history of urinary calculi; Z79.4 Long term (current) use of insulin
CPT/HCPCS: 74177; 80048; 80076; 80307; 81001; 82962; 83690; 84703; 85025; 87040; 87077; 87086; 87185; 87186; 96361; 96374; 96375; 99285; J0131; J0692; J1171; J1644; J1815; J1956; J2270; J2405; J7030; J7040; J7050; J7060; Q9967; 36415-L1; 36415-TC

== ENCOUNTER 2025-02-19 16:02 | Inpatient (IN) | payer OTHER ==
[~2025-02-19] VITALS: Ht 170.2 cm; Wt 45.7 kg
[~2025-02-19 16:02] MED LIST changes: +AMOX-457 PO; +GABA-1181 PO; +OXYC10TA59 PO; -PREN1TAB22 PO
[2025-02-19 16:21] LABS: GLUCOMETER DEV NAME(LOC) ERT.7; GLUCOSE,POINT OF CARE 398 MG/DL (70-110)
[2025-02-19] MEDS ORDERED: 0.9% SODIUM CHLORIDE 10 ML SYRINGE IVP PRN (16:45)
[2025-02-19 16:52] LABS: PLATELET COUNT (AUTO) 342 K/uL (150-450); RED BLOOD CELL COUNT(AUTO) 3.71 MIL/uL (4.00-5.20); RED CELL DISTRIBUTION WIDTH 16.0 % (11.5-14.5); WHITE BLOOD COUNT (AUTO) 7.4 K/uL (4.5-11.0)
[2025-02-19 16:56] LABS: APPEARANCE,URINE HAZY (CLEAR); GLUCOSE, URINE (UA) >=1000 mg/dL (NEGATIVE); LEUKOCYTE ESTERASE ,URINE MODERATE (NEGATIVE); NITRATE,URINE NEGATIVE (NEGATIVE); OCCULT BLOOD,URINE LARGE (NEGATIVE); SPECIFIC GRAVITIY, URINE 1.028 (1.003-1.030)
[2025-02-19] MEDS: MORPHINE SULFATE 2 MG/ML SYRINGE IVP ONE (17:01)
[2025-02-19 17:02] LABS: ACETONE,BLOOD NEGATIVE (NEGATIVE)
[2025-02-19] MEDS: SODIUM CHLORIDE 0.9% 1,450 ML IV ONE (17:06)
[2025-02-19 17:10] LABS: SQUAMOUS EPITHELIAL CELL,UR Few /LPF (None Seen); YEAST,URINE Few /HPF (None Seen)
[2025-02-19 17:11] LABS: SULFOSALICYLIC ACID,URINE 2+ (Negative)
[2025-02-19] MEDS: CefTRIAXone 1 GM/DEXTROSE 50 ML IV ONE (17:11)
[2025-02-19 17:13] LABS: CALCIUM, TOTAL 9.1 mg/dL (8.8-10.5); CREATININE 1.19 mg/dL (0.60-1.30); GLOMERULAR FILTR. RATE CALC 54.0 mL/min (>60); GLUCOSE,RANDOM 370.0 mg/dL (70-110); SODIUM SERUM 138.0 mmol/L (136-145); UREA NITROGEN, BLOOD 18.0 mg/dL (7-18)
[2025-02-19 17:14] LABS: LACTIC ACID 2.4 mmol/L (0.4-2.0)
[2025-02-19 19:11] LABS: GLUCOMETER DEV NAME(LOC) ER.7; GLUCOSE,POINT OF CARE 141 MG/DL (70-110)
[2025-02-19] MEDS ORDERED: BISACODYL 10 MG RECTAL RECTAL SUPPOSITORY PR PRN (19:45)
[2025-02-19] MEDS ORDERED: ACETAMINOPHEN 325 MG TABLET PO PRN (19:45)
[2025-02-19] MEDS ORDERED: ZOLPIDEM TARTRATE 5 MG TABLET PO PRN (19:45)
[2025-02-19] MEDS ORDERED: MAGNESIUM HYDROXIDE SUSPENSION 30 ML UDCUP PO PRN (19:45)
[2025-02-19] MEDS ORDERED: HYDROCODONE/ACETAMINOPHEN 5-325 MG TABLET PO PRN (19:45)
[2025-02-19] MEDS ORDERED: ONDANSETRON HCL 4 MG/2 ML VIAL IVP PRN (19:45)
[2025-02-19] MEDS: DOCUSATE SODIUM 100 MG CAPSULE PO SCH (20:39)
[2025-02-19] MEDS: SODIUM CHLORIDE 0.9% 1,000 ML IV ONE (20:45)
[2025-02-19] MEDS: GABAPENTIN 300 MG CAPSULE PO SCH (20:45)
[2025-02-19] MEDS: INSULIN GLARGINE,HUM.REC.ANLOG 100 UNITS/ML SQ SCH (20:46)
[2025-02-19] MEDS ORDERED: INSU100V37 SQ (20:51)
[2025-02-19] MEDS: MORPHINE SULFATE 4 MG/ML SYRINGE IVP PRN (21:17)
[2025-02-19] MEDS ORDERED: MIRT-149 PO (21:23)
[2025-02-19] MEDS ORDERED: MELA1TAB73 PO (21:23)
[2025-02-19] MEDS ORDERED: AMYL1CAP61 PO (21:23)
[2025-02-19 23:02] VITALS: BP 108/83; PULSE 79; RESP 18; TEMP 97.5; O2SAT 100
[2025-02-20] MEDS: HEPARIN SODIUM,PORCINE 5,000 UNITS/ML VIAL SQ SCH (01:16)
[2025-02-20 04:45] VITALS: BP 98/78; PULSE 78; RESP 17; TEMP 97.3; O2SAT 100
[2025-02-20 07:37] VITALS: BP 91/64; PULSE 80; RESP 17; TEMP 97.3; O2SAT 99
[2025-02-20 07:57] LABS: PLATELET COUNT (AUTO) 290 K/uL (150-450); RED BLOOD CELL COUNT(AUTO) 3.41 MIL/uL (4.00-5.20); RED CELL DISTRIBUTION WIDTH 15.9 % (11.5-14.5); WHITE BLOOD COUNT (AUTO) 5.2 K/uL (4.5-11.0)
[2025-02-20 08:17] LABS: CALCIUM, TOTAL 8.5 mg/dL (8.8-10.5); CREATININE 0.66 mg/dL (0.60-1.30); GLOMERULAR FILTR. RATE CALC > 60 mL/min (>60); GLUCOSE,RANDOM 55 mg/dL (70-110); SODIUM SERUM 141 mmol/L (136-145); UREA NITROGEN, BLOOD 13 mg/dL (7-18)
[2025-02-20 08:31] LABS: GLUCOMETER DEV NAME(LOC) 5S.2E; GLUCOSE,POINT OF CARE 51 MG/DL (70-110)
[2025-02-20 08:31] LABS: GLUCOMETER DEV NAME(LOC) 5S.2E; GLUCOSE,POINT OF CARE 52 MG/DL (70-110)
[2025-02-20 08:31] LABS: GLUCOMETER DEV NAME(LOC) 5N.2C; GLUCOSE,POINT OF CARE 133 MG/DL (70-110)
[2025-02-20] MEDS: PANTOPRAZOLE SODIUM 40 MG DR TABLET PO SCH (09:38)
[2025-02-20 11:08] VITALS: BP_SYST 100; BP_SYST 137; BP_DIAS 73; BP_DIAS 83; PULSE 71; PULSE 76; RESP 18; RESP 19; TEMP 97.3; TEMP 97.7; O2SAT 97; O2SAT 98
[2025-02-20] MEDS: SODIUM CHLORIDE 0.9% 1,000 ML IV ONE (12:27)
[2025-02-20 14:21] LABS: GLUCOMETER DEV NAME(LOC) 5S.2E; GLUCOSE,POINT OF CARE 228 MG/DL (70-110)
[2025-02-20 15:16] VITALS: BP 119/94; PULSE 90; RESP 16; TEMP 97.9; O2SAT 99
[2025-02-20] MEDS: CefTRIAXone 1 GM/DEXTROSE 50 ML IV SCH (18:19)
[2025-02-20 20:08] VITALS: BP 93/70; PULSE 94; RESP 17; TEMP 98.2; O2SAT 97
[2025-02-21] VITALS (8 sets, daily range): BP systolic 96–129; BP diastolic 73–96; PULSE 80–95; RESP 17–18; TEMP 97.5–98.6; O2SAT 97–100
[2025-02-21 05:06] LABS: GLUCOMETER DEV NAME(LOC) 5N.2C; GLUCOSE,POINT OF CARE 505 MG/DL (70-110)
[2025-02-21 05:06] LABS: GLUCOMETER DEV NAME(LOC) 5N.2C; GLUCOSE,POINT OF CARE 370 MG/DL (70-110)
[2025-02-21 06:00] LABS: PLATELET COUNT (AUTO) 291 K/uL (150-450); RED BLOOD CELL COUNT(AUTO) 3.30 MIL/uL (4.00-5.20); RED CELL DISTRIBUTION WIDTH 16.0 % (11.5-14.5); WHITE BLOOD COUNT (AUTO) 4.6 K/uL (4.5-11.0)
[2025-02-21 06:08] LABS: CALCIUM, TOTAL 8.3 mg/dL (8.8-10.5); CREATININE 0.99 mg/dL (0.60-1.30); GLOMERULAR FILTR. RATE CALC > 60 mL/min (>60); SODIUM SERUM 135 mmol/L (136-145); UREA NITROGEN, BLOOD 13 mg/dL (7-18)
[2025-02-21] MEDS: INSULIN LISPRO 100 UNITS/ML SQ ONE (06:20)
[2025-02-21 06:42] LABS: GLUCOSE,RANDOM 418 mg/dL (70-110)
[2025-02-21] MEDS ORDERED: DEXTROSE 50%-WATER 25 GM/50 ML SYRINGE IVP PRN ×2 (09:15→18:30)
[2025-02-21 11:01] LABS: GLUCOMETER DEV NAME(LOC) 5S.2E; GLUCOSE,POINT OF CARE 413 MG/DL (70-110)
[2025-02-21] MEDS: INSULIN LISPRO 100 UNITS/ML SQ PRN (11:36)
[2025-02-21] MEDS: MORPHINE SULFATE 4 MG/ML SYRINGE IVP PRN (11:40)
[2025-02-21 16:31] LABS: GLUCOMETER DEV NAME(LOC) 5N.2C; GLUCOSE,POINT OF CARE 155 MG/DL (70-110)
[2025-02-21] MEDS ORDERED: INSU100V42 SQ (18:41)
[2025-02-21] MEDS: INSULIN GLARGINE,HUM.REC.ANLOG 100 UNITS/ML SQ SCH (20:38)
[2025-02-21 21:30] LABS: GLUCOMETER DEV NAME(LOC) 6N.2C; GLUCOSE,POINT OF CARE 268 MG/DL (70-110)
[2025-02-22 05:47] VITALS: BP 128/96; PULSE 88; RESP 18; TEMP 97.9; O2SAT 98
[2025-02-22] MEDS: INSULIN LISPRO 100 UNITS/ML SQ PRN (06:15)
[2025-02-22 06:40] LABS: GLUCOSE,POINT OF CARE 372 MG/DL (70-110)
[2025-02-22 07:15] LABS: CALCIUM, TOTAL 8.7 mg/dL (8.8-10.5); CREATININE 0.81 mg/dL (0.60-1.30); GLOMERULAR FILTR. RATE CALC > 60 mL/min (>60); GLUCOSE,RANDOM 363 mg/dL (70-110); SODIUM SERUM 135 mmol/L (136-145); UREA NITROGEN, BLOOD 13 mg/dL (7-18)
[2025-02-22 07:26] LABS: PLATELET COUNT (AUTO) 282 K/uL (150-450); RED BLOOD CELL COUNT(AUTO) 3.38 MIL/uL (4.00-5.20); RED CELL DISTRIBUTION WIDTH 16.1 % (11.5-14.5); WHITE BLOOD COUNT (AUTO) 4.8 K/uL (4.5-11.0)
== END 2025-02-22 08:10 | disposition left against medical advice (07) | DRG 872 ==
LOC: EMS 16:02 → EDH 17:48 → 5S 22:40 → 6S 02-21 14:50
PROVIDERS: ADMIT Internal Medicine; ATTEND Internal Medicine
DX: A41.9 Sepsis, unspecified organism (principal); E44.0 Moderate protein-calorie malnutrition; N39.0 Urinary tract infection, site not specified; E11.49 Type 2 diabetes mellitus with other diabetic neurological complication; K86.1 Other chronic pancreatitis; E11.65 Type 2 diabetes mellitus with hyperglycemia; F41.9 Anxiety disorder, unspecified; Z53.29 Procedure and treatment not carried out because of patient's decision for other reasons; I95.9 Hypotension, unspecified; Z79.4 Long term (current) use of insulin; Z87.59 Personal history of other complications of pregnancy, childbirth and the puerperium; Z88.6 Allergy status to analgesic agent; Z88.8 Allergy status to other drugs, medicaments and biological substances; Z79.899 Other long term (current) drug therapy; N31.9 Neuromuscular dysfunction of bladder, unspecified
CPT/HCPCS: 71045; 80048; 81001; 81002; 82009; 82962; 83036; 83605; 83690; 84145; 84703; 85025; 87040; 87086; 93005; 96361; 96365; 96375; 99291; J0696; J1171; J1644; J1815; J2270; J7030; 36415-L1; 36415-TC